=== PATIENT | male | born 1965 | race Hispanic/Latino ===

== ENCOUNTER 2019-09-07 08:57 | Inpatient (IN) | payer BC ==
[2019-09-07] MEDS ORDERED: ACETAMINOPHEN 500 MG TAB PO STA ×2 (09:00→09:44)
--- NOTE | 2019-09-07 09:00 | Emergency Department Report ---
ED Fever HPI - General Stated Complaint: SEPSIS PUI?: No Source: patient Exam Limitations: no limitations - History of Present Illness Initial Comments: Mr. Ricardo is a 53-year-old male with history of hypertension, diverticulitis, who presents with fever and left flank pain for several days. He has gen eralized malaise. He has burning with urination. His son called 911 due to illness. He denies cough or shortness of breath. He denies fever cough or recent travel Timing/Duration: other (Several days) Fever Severity/Quality: greater than 102 F Associated Symptoms: other (Back pain) ED Review of Systems ROS: Stated complaint: SEPSIS Other details as noted in HPI Comment: All other systems reviewed and negative Constitutional: fever, malaise Respiratory: denies: cough, shortness of breath Gastrointestinal: denies: abdominal pain, nausea, vomiting Genitourinary: dysuria, other (Back pain) Musculoskeletal: back pain ED Past Medical Hx - Past Medical History Previous Medical History?: Yes Hx Hypertension: Yes - Surgical History Past Surgical History?: Yes Hx Cholecystectomy: Yes Additional Surgical History: back surgeries x 6 - Social History Smoking Status: Never Smoker Substance Use Type: None ED Physical Exam - General General appearance: alert, other (Appears ill appears uncomfortable) - Head Head exam: Present: atraumatic, normocephalic - Eye Eye exam: Present: normal appearance - ENT ENT exam: Present: mucous membranes moist - Neck Neck exam: Present: normal inspection, full ROM - Respiratory Respiratory exam: Present: normal lung sounds bilaterally. Absent: respiratory distress, wheezes, rales, rhonchi - Cardiovascular Cardiovascular Exam: Present: normal rhythm, tachycardia, normal heart sounds. Absent: systolic murmur, diastolic murmur, rubs, gallop - GI/Abdominal GI/Abdominal exam: Present: soft, tenderness (Left lower quadrant tenderness). Absent: guarding, rebound - Rectal Rectal exam: Present: deferred - Extremities Exam Extremities exam: Present: normal inspection - Neurological Exam Neurological exam: Present: alert, oriented X3 - Psychiatric Psychiatric exam: Present: normal mood, flat affect - Skin Skin exam: Present: warm, dry, intact, normal color. Absent: rash ED Course Vital Signs 09/07/19 09/07/19 09/07/19 08:48 08:56 09:01 Temperature Pulse Rate 131 H 130 H 129 H Respiratory 21 20 Rate Blood Pressure 143/61 Blood Pressure 143/61 [Right] O2 Sat by Pulse 94 94 96 Oximetry 09/07/19 09/07/19 09/07/19 09:06 09:51 10:00 Temperature 103.4 F H Pulse Rate 135 H Respiratory 18 24 Rate Blood Pressure 155/83 139/77 Blood Pressure [Right] O2 Sat by Pulse 97 96 Oximetry 09/07/19 10:31 Temperature Pulse Rate 132 H Respiratory 21 Rate Blood Pressure 139/79 Blood Pressure [Right] O2 Sat by Pulse 92 Oximetry ED Medical Decision Making - Lab Data Result diagrams: 09/07/19 09:10 09/07/19 09:10 Laboratory Results - last 24 hr 09/07/19 09/07/19 09/07/19 09:06 09:10 09:10 WBC 11.0 RBC 4.47 Hgb 12.6 Hct 37.2 MCV 83 L MCH 28 MCHC 34 RDW 16.1 H Plt Count 122 L Seg Neutrophils % Hose Seamer Sodium 133 L Potassium 3.2 L Chloride 93.7 L Carbon Dioxide 25 Anion Gap 18 BUN 14 Creatinine 1.2 Estimated GFR > 60 BUN/Creatinine Ratio 12 Glucose 130 H POC Glucose 133 H Lactic Acid Calcium 7.9 L Total Bilirubin 0.80 AST 17 ALT 13 Alkaline Phosphatase 39 Total Protein 5.9 L Albumin 3.1 L Albumin/Globulin Ratio 1.1 Urine Color Urine Turbidity Urine pH Ur Specific [place] Urine Protein Urine Glucose (UA) Urine Ketones Urine Blood Urine Nitrite Urine Bilirubin Urine Urobilinogen Ur Leukocyte Esterase Urine WBC (Auto) Urine RBC (Auto) U Epithel Cells (Auto) Urine Bacteria (Auto) Urine Mucus 09/07/19 09/07/19 09/07/19 09:10 10:00 10:13 WBC RBC Hgb Hct MCV MCH MCHC RDW Plt Count Seg Neutrophils % Sodium Potassium Chloride Carbon Dioxide Anion Gap BUN Creatinine Estimated GFR BUN/Creatinine Ratio Glucose POC Glucose Lactic Acid 2.00 1.20 Calcium Total Bilirubin AST ALT Alkaline Phosphatase Total Protein Albumin Albumin/Globulin Ratio Urine Color [place] Urine Turbidity Slightly-cloudy Urine pH 6.0 Ur Specific [place] 1.024 Urine Protein 100 mg/dl Urine Glucose (UA) Neg Urine Ketones 80 Urine Blood Lg Urine Nitrite Neg Urine Bilirubin Neg Urine Urobilinogen < 2.0 Ur Leukocyte Esterase Neg Urine WBC (Auto) 6.0 Urine RBC (Auto) 68.0 U Epithel Cells (Auto) 1.0 Urine Bacteria (Auto) 1+ Urine Mucus 1+ - EKG Data EKG shows normal: sinus rhythm, axis, intervals, QRS complexes, ST-T waves Rate: tachycardia - EKG Data Interpretation: normal EKG (With exception of heart rate 130 bpm) - Radiology Data Radiology results: report reviewed CT abdomen pelvis: Localized thickening of the proximal sigmoid colon with mild surrounding edema, CT chest: No acute findings AP portable chest: No acute findings - Medical Decision Making Acute sigmoid diverticulitis, sepsis antibiotics initiated according to sepsis protocol presumed initially a source. After intra-abdominal process confirmed, metronidazole was added to the regimen. Admitted to the hospital service in fair condition Critical care attestation.: If time is entered above; I have spent that time in minutes in the direct care of this critically ill patient, excluding procedure time. ED Disposition Clinical Impression: Acute diverticulitis, Sepsis Disposition: [id number] OP ADMIT IP TO THIS HOSP Is pt being admited?: Yes Does the pt Need Aspirin: No Condition: Stable
[2019-09-07 09:23] LABS: Hematocrit 37.2 % (35.5-45.6); Hemoglobin 12.6 gm/dl (11.8-15.2); Mean Corpuscular HGB Conc 34 % (32-34); Mean Corpuscular Volume 83 fl (84-94); Platelet Count 122 K/mm3 (140-440); Red Blood Count 4.47 M/mm3 (3.65-5.03); Red Cell Distribution Width 16.1 % (13.2-15.2)
[2019-09-07] MEDS ORDERED: DEXTROSE 50% IN WATER (25GM) 50 ML SYRINGE IV ONE (09:46)
--- NOTE | 2019-09-07 09:58 | XRay Report ---
CHEST 1 VIEW INDICATION / CLINICAL INFORMATION: fever. COMPARISON: None available. FINDINGS: SUPPORT DEVICES: None. HEART / MEDIASTINUM: Heart size is normal with left ventricular configuration. LUNGS / PLEURA: No significant pulmonary or pleural abnormality. No pneumothorax. ADDITIONAL FINDINGS: No significant additional findings. IMPRESSION: 1. No acute findings. Signer Name: Dorian Westbrook MD Signed: 09/07/2019 9:54 AM Workstation Name: [id number]
[2019-09-07] MEDS ORDERED: cefTRIAXone/NS 1 GM/50 ML 1 GM/50 ML BAG IV SCH (10:00)
[2019-09-07 10:07] LABS: Alanine Aminotransferase 13 units/L (7-56); Albumin 3.1 g/dL (3.9-5); BUN/Creatinine Ratio 12; Blood Urea Nitrogen 14 mg/dL (9-20); Calcium 7.9 mg/dL (8.4-10.2); Hemolysis Index 0
[2019-09-07] MEDS ORDERED: SODIUM CHLORIDE 0.9% 1000 ML 1,000 ML IV ONE ×3 (10:08→11:14)
[2019-09-07] MEDS ORDERED: SODIUM CHLORIDE 0.9% 1000 ML 1,000 ML ONE (10:10)
--- NOTE | 2019-09-07 10:22 | Cat Scan Report ---
CT chest wo con INDICATION: fever back pain. TECHNIQUE: All CT scans at this location are performed using the following dose modulation technique: Automated exposure control. CONTRAST: None. COMPARISON: None available. FINDINGS: Negative for lung mass, infiltrate or pleural fluid. No mediastinal mass or adenopathy. No acute appearing bony abnormality. IMPRESSION: Unremarkable CT chest without contrast. Signer Name: Freddy Constantino MD Signed: 09/07/2019 10:18 AM Workstation Name: [id number]
[2019-09-07 10:28] LABS: Bacteria,Urine 1+ /HPF (Negative); Bilirubin,Urine NEG (Negative); Blood,Urine LG (Negative); Color,Urine Amber (Yellow); Mucus,Urine 1+ /HPF; Urobilinogen,Urine < 2.0 mg/dL (<2.0)
--- NOTE | 2019-09-07 10:42 | Cat Scan Report ---
CT abdomen pelvis wo con INDICATION / CLINICAL INFORMATION: fever back pain. TECHNIQUE: All CT scans at this location are performed using CT dose reduction for ALARA by means of automated e xposure control. COMPARISON: None available. FINDINGS: Limited lower thoracic images show no acute disease. ABDOMEN: Cholecystectomy. The liver, spleen and pancreas are normal. Bilateral nephrolithiasis without hydronephrosis or ureteral stones. The largest intrarenal calculus is in the lower pole of the right kidney measuring 13 mm. No perinephric fluid collections. Adrenal glands are normal. No mesenteric or retroperitoneal adenopathy. Pelvis: There is a normal retrocecal appendix. Localized thickening of the proximal sigmoid colon with mild surrounding edema. There are no dependent fluid collections are seen in the pelvis. Fluid is seen in the rectosigmoid. Postsurgical changes are seen in the lower lumbar spine. No acute skeletal findings. IMPRESSION: 1. Abnormality of the proximal sigmoid colon could represent localized colitis/diverticulitis. The fi ndings could all be so be produced by carcinoma the colon. Signer Name: Dorian Westbrook MD Signed: 09/07/2019 10:38 AM Workstation Name: [id number]
[2019-09-07] MEDS ORDERED: metroNIDAZOLE/NS 500 MG/100 ML 500 MG/100 ML BAG IV ONE (11:07)
[2019-09-07] MEDS ORDERED: IBUPROFEN 800 MG TAB PO ONE (11:14)
[2019-09-07 11:46] LABS: Total Cells Counted 100
[2019-09-07 11:47] LABS: Anisocytosis RARE; Band Neutrophils # (Manual) 0.4 K/mm3; Basophils % (Manual) 0 % (0.0-1.8); Eosinophils % (Manual) 0 % (0.0-4.3); Platelet Estimate Consistent w Auto
[2019-09-07] MEDS: predniSONE 20 MG TAB PO SCH (12:04)
[2019-09-07] MEDS: PYRIDOSTIGMINE BROMIDE 60 MG TAB PO SCH ×2 (12:29→17:58)
[2019-09-07] MEDS ORDERED: LORazepam 2 MG/ML VIAL ONE (12:47)
--- NOTE | 2019-09-07 14:05 | History and Physical Report ---
History of Present Illness Chief complaint: I am having stomach pain History of present illness: 53 YO Male with HTN, Myasthenia Gravis, Ulcerative Colitis presents to ED for evaluation. Patient states that he has been experiencing abdominal pain over the past 2 weeks with worsening symptoms over the past 4 days. Patient also reports fever to 102 F. Patient's reports that patient did not receive his Solaris infusion due to feeling ill. Patient states his abdominal pain is 7/10, constant, crampy in nature, not worsened with exertion, not relieved with rest. EMS notified and upon arrival the patient was found to be in distress and subsequently transported to [facility] for further care and evaluation. Patient seen and evaluated in the emergency department. Lab and imaging studies reviewed. Patient underwent a CT scan of the abdomen and pelvis which showed evidence of diverticulitis. Patient admitted to surgical floor due to increased risk of decompensation. Patient treated with IV fluid resuscitation therapy, bowel rest, and IV antibiotic therapy. Surgical team consulted in ED. Patient denies chills, chest pain, palpitation, productive cough, recent ill contacts, ingestion of food/water from new or different sources, known exposure to COVID- 19. No prior admission for review. All medication listed at time of admission has been reconciled. Past History Past Medical History: hypertension, other (See HPI) Past Surgical History: cholecystectomy, Other (Back surgery) Social history: , Lives alone Family history: hypertension Medications and Allergies Allergies Allergy/AdvReac Type Severity Reaction Status Date / Time No Known Allergies Allergy Unverified 09/07/19 09:06 Home Medications Medication Instructions Recorded Confirmed Last Taken Type Balsalazide Disodium [Colazal] 2,250 mg PO TID 09/07/19 09/07/19 09/06/19 History Gabapentin 900 mg PO TID 09/07/19 09/07/19 09/06/19 History Metoprolol [Lopressor] 25 mg PO BID 09/07/19 09/07/19 09/06/19 History Olmesartan/Amlodipin/Hcthiazid 2 each PO DAILY 09/07/19 09/07/19 09/06/19 History [Tribenzor 20-5-12.5 mg Tablet] Omeprazole 40 mg PO DAILY 09/07/19 09/07/19 09/06/19 History Pyridostigmine [Mestinon] 120 mg PO Q6HR 09/07/19 09/07/19 09/06/19 History Tamsulosin [Flomax] 0.4 mg PO QDAY 09/07/19 09/07/19 09/06/19 History carBAMazepine [Carbamazepine] 200 mg PO BID 09/07/19 09/07/19 09/06/19 History predniSONE [Deltasone] 60 mg PO QDAY 09/07/19 09/07/19 09/06/19 History Active Meds: Active Medications Ceftriaxone Sodium (Rocephin/Ns 1 Gm/50 Ml) 1 gm in 50 mls @ 100 mls/hr IV Q24HR [facility]; Protocol Stop: 09/09/19 10:29 Last Infusion: 09/07/19 10:20 Dose: Infused Documented by: Prednisone (Deltasone) 60 mg PO DAILY [facility] Last Admin: 09/07/19 12:04 Dose: 60 mg Documented by: Pyridostigmine [place] (Mestinon) 120 mg PO Q6HR [facility] Last Admin: 09/07/19 12:29 Dose: 120 mg Documented by: Review of Systems Constitutional: fever, malaise, no weight loss, no weight gain, no chills, no sweats Ears, nose, mouth and throat: no ear pain, no ear discharge, no tinnitis, no decreased hearing, no nose pain Cardiovascular: no chest pain, no orthopnea, no rapid/irregular heart beat, no syncope, no lightheadedness Respiratory: no cough, no cough with sputum, no excessive sputum, no hemoptysis Gastrointestinal: abdominal pain, no nausea, no vomiting, no diarrhea, no hematemesis Genitourinary Male: no hematuria, no flank pain, no discharge, no urinary hesitancy, no nocturia Rectal: no pain, no incontinence, no bleeding Musculoskeletal: no neck stiffness, no neck pain, no shooting leg pain, no leg numbness/tingling Integumentary: no rash, no pruritis, no sores, no wounds, no jaundice, no boils Neurological: no transient paralysis, no paralysis, no numbness, no tingling, no seizures, no syncope Psychiatric: no anxiety, no memory loss, no change in sleep habits, no insomnia, no hypersomnia, no change in appetite, no suicidal ideation, no disorientation Endocrine: no cold intolerance, no heat intolerance, no polyphagia, no polydipsia, no polyuria Hematologic/Lymphatic: no easy bruising, no easy bleeding, no lymphedema Allergic/Immunologic: no urticaria, no allergic rhinitis, no wheezing, no anaphylaxis Exam - Constitutional Vitals: Temp Pulse Resp BP Pulse Ox 100.3 F H 95 H 19 128/63 93 09/07/19 11:06 09/07/19 12:30 09/07/19 12:30 09/07/19 12:30 09/07/19 12:30 General appearance: Present: mild distress, obese - EENT Eyes: Present: PERRL ENT: hearing intact, clear oral mucosa - Neck Neck: Present: supple, normal ROM - Respiratory Respiratory effort: normal Respiratory: bilateral: CTA - Cardiovascular Heart Sounds: Present: S1 & S2. Absent: rub, click - Extremities Extremities: pulses symmetrical, No edema Peripheral Pulses: within normal limits - Abdominal General gastrointestinal: Present: soft, non-tender, non-distended, normal bowel sounds Male genitourinary: Present: normal - Integumentary Integumentary: Present: clear, warm, dry - Musculoskeletal Musculoskeletal: gait normal, strength equal bilaterally - Psychiatric Psychiatric: appropriate mood/affect, intact judgment & insight - Neurologic Neurologic: CNII-XII intact, moves all extremities Results - Labs CBC & Chem 7: 09/07/19 09:10 09/07/19 09:10 Labs: Abnormal lab results 09/07/19 09/07/19 09/07/19 Range/Units 09:06 09:10 09:10 MCV 83 L (84-94) fl RDW 16.1 H (13.2-15.2) % Plt Count 122 L (140-440) K/mm3 Seg Neuts % (Manual) 92.0 H (40.0-70.0) % Lymphocytes % (Manual) 2.0 L (13.4-35.0) % Seg Neutrophils # Man 10.1 H (1.8-7.7) K/mm3 Lymphocytes # (Manual) 0.2 L (1.2-5.4) K/mm3 Sodium 133 L (137-145) mmol/L Potassium 3.2 L (3.6-5.0) mmol/L Chloride 93.7 L (98-107) mmol/L Glucose 130 H (75-100) mg/dL POC Glucose 133 H (70-105) Calcium 7.9 L (8.4-10.2) mg/dL Total Protein 5.9 L (6.3-8.2) g/dL Albumin 3.1 L (3.9-5) g/dL Assessment and Plan - Patient Problems (1) Acute diverticulitis Current Visit: Yes Status: Acute Plan to address problem: CT scan abdomen and pelvis, CBC, CMP, IV antibiotic therapy, IV fluid resuscitation therapy, bowel rest, supportive care, surgery team consulted in ED. (2) Ulcerative colitis Current Visit: Yes Status: Acute Qualifiers: Digestive disease complication type: with intestinal obstruction Plan to address problem: Supportive care, outpatient GI follow-up, continue prehospital therapy. (3) Hyponatremia syndrome Current Visit: Yes Status: Acute Plan to address problem: IV fluid resuscitation therapy, BMP, repeat BMP in a.m. (4) Hypokalemia Current Visit: Yes Status: Acute Plan to address problem: Repleted, repeat serum potassium in a.m. (5) Myasthenia gravis Current Visit: Yes Status: Acute Plan to address problem: Supportive care, continue prehospital medication, stable no exacerbation at this time. (6) DVT prophylaxis Current Visit: Yes Status: Acute Plan to address problem: SCD to bilateral lower extremities while in bed, patient is ambulatory
[2019-09-07] MEDS ORDERED: ONDANSETRON 4 MG/2 ML INJ IV PRN (14:08)
--- NOTE | 2019-09-07 17:34 | Consultation ---
History of Present Illness Consult date: 09/07/19 Reason for consult: abdominal pain Chief complaint: Abdominal pain - History of present illness History of present illness: 53-year-old male with a past medical history of ulcerative colitis, myasthenia g ravis, diverticulosis who presents to the emergency room with complaints of left lower quadrant abdominal pain. The patient states that the pain is dull and has been present for 4 days. He has just been feeling unwell and very fatigued. He has never had pain like this in the past. The pain does not radiate. There were no inciting factors and no sick contacts. He denies fevers, chills, chest pain, shortness of breath, nausea, vomiting. He does have diarrhea but this is normal for him due to his ulcerative colitis. No hematochezia or melena. 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 Patient states that he takes medication for ulcerative colitis daily. He is also on infusions for his myasthenia gravis. His last colonoscopy was 2 years ago which was unremarkable. He states he was supposed to have a colonoscopy in the last several months however it was canceled due to the coronavirus pandemic. Past History Past Medical History: hypertension, other (Myasthenia gravis, ulcerative colitis) Past Surgical History: cholecystectomy, Other (Multiple neck and back surgeries, carpal tunnel surgery) Social history: no significant social history Family history: no significant family history Medications and Allergies Allergies Allergy/AdvReac Type Severity Reaction Status Date / Time No Known Allergies Allergy Unverified 09/07/19 09:06 Home Medications Medication Instructions Recorded Confirmed Last Taken Type Balsalazide Disodium [Colazal] 2,250 mg PO TID 09/07/19 09/07/19 09/06/19 History Gabapentin 900 mg PO TID 09/07/19 09/07/19 09/06/19 History Metoprolol [Lopressor] 25 mg PO BID 09/07/19 09/07/19 09/06/19 History Olmesartan/Amlodipin/Hcthiazid 2 each PO DAILY 09/07/19 09/07/19 09/06/19 History [Tribenzor 20-5-12.5 mg Tablet] Omeprazole 40 mg PO DAILY 09/07/19 09/07/19 09/06/19 History Pyridostigmine [Mestinon] 120 mg PO Q6HR 09/07/19 09/07/19 09/06/19 History Tamsulosin [Flomax] 0.4 mg PO QDAY 09/07/19 09/07/19 09/06/19 History carBAMazepine [Carbamazepine] 200 mg PO BID 09/07/19 09/07/19 09/06/19 History predniSONE [Deltasone] 60 mg PO QDAY 09/07/19 09/07/19 09/06/19 History Active Meds: Active Medications Acetaminophen (Tylenol) 650 mg PO Q4H PRN PRN Reason: Pain MILD(1-3)/Fever >100.5/BALDERAS Amlodipine Besylate (Amlodipine) 5 mg PO QDAY [facility] Carbamazepine (Tegretol) 200 mg PO BID [facility] Gabapentin (Gabapentin) 900 mg PO TID [facility] Hydrochlorothiazide (Hctz) 12.5 mg PO QDAY [facility] Ceftriaxone Sodium (Rocephin/Ns 1 Gm/50 Ml) 1 gm in 50 mls @ 100 mls/hr IV Q24HR [facility]; Protocol Stop: 09/09/19 10:29 Last Infusion: 09/07/19 10:20 Dose: Infused Documented by: Metronidazole (Flagyl 500 Mg/100 Ml) 500 mg in 100 mls @ 100 mls/hr IV Q8HR [facility]; Protocol Piperacillin Sod/Tazobactam Sod (Zosyn/Ns 4.5gm/100ml) 4.5 gm in 100 mls @ 200 mls/hr IV Q8HR [facility]; Protocol Sodium Chloride (Nacl 0.9% 1000 Ml) 1,000 mls @ 125 mls/hr IV DIRECT [facility] Losartan Potassium (Cozaar) 50 mg PO QDAY [facility] Metoprolol Tartrate (Metoprolol) 25 mg PO BID [facility] Miscellaneous Medication (Balsalazide Disodium [Colazal]) 2,250 mg PO TID [facility] Morphine Sulfate (Morphine) 2 mg IV Q4H PRN PRN Reason: Pain, Moderate (4-6) Ondansetron HCl (Zofran) 4 mg IV Q8H PRN PRN Reason: Nausea And Vomiting Pantoprazole Sodium (Protonix) 40 mg PO DAILY [facility] Prednisone (Deltasone) 60 mg PO DAILY [facility] Last Admin: 09/07/19 12:04 Dose: 60 mg Documented by: Prednisone (Deltasone) 60 mg PO QDAY [facility] Pyridostigmine [place] (Mestinon) 120 mg PO Q6HR [facility] Last Admin: 09/07/19 12:29 Dose: 120 mg Documented by: Pyridostigmine [place] (Mestinon) 120 mg PO Q6HR [facility] Sodium Chloride (Sodium Chloride Flush Syringe 10 Ml) 10 ml IV BID [facility] Sodium Chloride (Sodium Chloride Flush Syringe 10 Ml) 10 ml IV PRN PRN PRN Reason: LINE FLUSH Tamsulosin HCl (Flomax) 0.4 mg PO QDAY [facility] Review of Systems All systems: negative (10 point review systems performed and negative except for that listed in HPI) Exam Vital Signs Pulse Pulse Ox 131 H 94 09/07/19 08:48 09/07/19 08:48 Narrative exam: Gen.: Awake, alert, oriented 3. No apparent distress ENT: Trachea midline. No lymphadenopathy. No scleral icterus or conjunctival pallor CV: S1, S2 present Respiratory: No audible wheezes Abdomen: Soft, protuberant, nondistended, localized tenderness to palpation in the left lower quadrant. No rebound, rigidity, guarding Extremities: No clubbing, cyanosis, edema Results - Labs 09/07/19 09:10 09/07/19 09:10 Abnormal lab results 09/07/19 09/07/19 09/07/19 Range/Units 09:06 09:10 09:10 MCV 83 L (84-94) fl RDW 16.1 H (13.2-15.2) % Plt Count 122 L (140-440) K/mm3 Seg Neuts % (Manual) 92.0 H (40.0-70.0) % Lymphocytes % (Manual) 2.0 L (13.4-35.0) % Seg Neutrophils # Man 10.1 H (1.8-7.7) K/mm3 Lymphocytes # (Manual) 0.2 L (1.2-5.4) K/mm3 Sodium 133 L (137-145) mmol/L Potassium 3.2 L (3.6-5.0) mmol/L Chloride 93.7 L (98-107) mmol/L Glucose 130 H (75-100) mg/dL POC Glucose 133 H (70-105) Calcium 7.9 L (8.4-10.2) mg/dL Total Protein 5.9 L (6.3-8.2) g/dL Albumin 3.1 L (3.9-5) g/dL Diabetes panel 09/07/19 Range/Units 09:10 Sodium 133 L (137-145) mmol/L Potassium 3.2 L (3.6-5.0) mmol/L Chloride 93.7 L (98-107) mmol/L Carbon Dioxide 25 (22-30) mmol/L BUN 14 (9-20) mg/dL Creatinine 1.2 (0.8-1.5) mg/dL Glucose 130 H (75-100) mg/dL Calcium 7.9 L (8.4-10.2) mg/dL AST 17 (5-40) units/L ALT 13 (7-56) units/L Alkaline Phosphatase 39 (35-129) units/L Total Protein 5.9 L (6.3-8.2) g/dL Albumin 3.1 L (3.9-5) g/dL Calcium panel 09/07/19 Range/Units 09:10 Calcium 7.9 L (8.4-10.2) mg/dL Albumin 3.1 L (3.9-5) g/dL Pituitary panel 09/07/19 Range/Units 09:10 Sodium 133 L (137-145) mmol/L Potassium 3.2 L (3.6-5.0) mmol/L Chloride 93.7 L (98-107) mmol/L Carbon Dioxide 25 (22-30) mmol/L BUN 14 (9-20) mg/dL Creatinine 1.2 (0.8-1.5) mg/dL Glucose 130 H (75-100) mg/dL Calcium 7.9 L (8.4-10.2) mg/dL Adrenal panel 09/07/19 Range/Units 09:10 Sodium 133 L (137-145) mmol/L Potassium 3.2 L (3.6-5.0) mmol/L Chloride 93.7 L (98-107) mmol/L Carbon Dioxide 25 (22-30) mmol/L BUN 14 (9-20) mg/dL Creatinine 1.2 (0.8-1.5) mg/dL Glucose 130 H (75-100) mg/dL Calcium 7.9 L (8.4-10.2) mg/dL Total Bilirubin 0.80 (0.1-1.2) mg/dL AST 17 (5-40) units/L ALT 13 (7-56) units/L Alkaline Phosphatase 39 (35-129) units/L Total Protein 5.9 L (6.3-8.2) g/dL Albumin 3.1 L (3.9-5) g/dL - Imaging CT scan - abdomen: report reviewed, image reviewed CT scan - pelvis: report reviewed, image reviewed Assessment and Plan 53-year-old male with 1. acute uncomplicated sigmoid diverticulitis 2. History of ulcerative colitis Plan: 1. NPO 2. IVF 3. IV abx - already initiated in ER 4. prn pain control 5. DVT ppx 6. Will follow Thank you, please call with questions.
[2019-09-07] MEDS ORDERED: PYRIDOSTIGMINE BROMIDE 60 MG TAB PO SCH (18:00)
[2019-09-07] MEDS ORDERED: BALSALAZIDE DISODIUM 2250 MG PO SCH (20:00)
[2019-09-07] MEDS: GABAPENTIN 300 MG CAP PO SCH (21:22)
[2019-09-07] MEDS: SODIUM CHLORIDE 0.9% 1000 ML 1,000 ML IV SCH (22:08)
[2019-09-07] MEDS: metroNIDAZOLE/NS 500 MG/100 ML 500 MG/100 ML BAG IV SCH (22:44)
[2019-09-07] MEDS: METOPROLOL TARTRATE 25 MG TAB PO SCH (23:15)
[2019-09-07] MEDS: carBAMazepine 200 MG TAB PO SCH (23:15)
[2019-09-07] MEDS: PIPERACIL/TAZOBACTA 4.5/NS 100 4.5 GM/100 ML VIAL IV SCH (23:16)
[2019-09-08] MEDS: MORPHINE 2 MG/1 ML INJ IV PRN ×3 (01:12→17:28)
[2019-09-08] MEDS: PYRIDOSTIGMINE BROMIDE 60 MG TAB PO SCH ×4 (01:13→17:16)
[2019-09-08] MEDS: ACETAMINOPHEN 325 MG TAB PO PRN ×2 (04:18→11:40)
[2019-09-08 05:38] LABS: Basophils % (Auto) 0.2 % (0.0-1.8); Hematocrit 34.6 % (35.5-45.6); Hemoglobin 11.4 gm/dl (11.8-15.2); Lymphocytes # (Auto) 0.4 K/mm3 (1.2-5.4); Lymphocytes % (Auto) 3.2 % (13.4-35.0); Mean Corpuscular HGB Conc 33 % (32-34); Mean Corpuscular Volume 83 fl (84-94); Monocytes # (Auto) 0.9 K/mm3 (0.0-0.8); Monocytes % (Auto) 6.6 % (0.0-7.3); Platelet Count 136 K/mm3 (140-440); Red Blood Count 4.16 M/mm3 (3.65-5.03); Red Cell Distribution Width 16.5 % (13.2-15.2)
[2019-09-08 05:53] LABS: Alanine Aminotransferase 12 units/L (7-56); Albumin 2.7 g/dL (3.9-5); BUN/Creatinine Ratio 19; Blood Urea Nitrogen 21 mg/dL (9-20); Calcium 7.7 mg/dL (8.4-10.2); Hemolysis Index 19
[2019-09-08] MEDS: metroNIDAZOLE/NS 500 MG/100 ML 500 MG/100 ML BAG IV SCH (05:54)
[2019-09-08] MEDS: PIPERACIL/TAZOBACTA 4.5/NS 100 4.5 GM/100 ML VIAL IV SCH ×4 (07:20→22:50)
[2019-09-08] MEDS ORDERED: MAGNESIUM SULFATE 1 GM in SODIUM CHLORIDE 0.9% 50 ML IV ONE (08:30)
[2019-09-08] MEDS ORDERED: AMLODIPIN PO SCH (10:00)
[2019-09-08] MEDS ORDERED: NON-FORMULARY EACH (Omeprazole [Omeprazole] 40 MG) PO SCH (10:00)
[2019-09-08] MEDS ORDERED: OLMESARTAN PO SCH (10:00)
[2019-09-08] MEDS ORDERED: predniSONE 20 MG TAB PO SCH (10:00)
[2019-09-08] MEDS ORDERED: HCTHIAZID PO SCH (10:00)
[2019-09-08] MEDS ORDERED: [UNRECOGNIZED DRUG - OTHER] PO SCH (10:00)
[2019-09-08] MEDS: amLODIPine 5 MG TAB PO SCH (10:12)
[2019-09-08] MEDS: TAMSULOSIN 0.4 MG CAP PO SCH (10:12)
[2019-09-08] MEDS: PANTOPRAZOLE 40 MG TAB PO SCH (10:13)
[2019-09-08] MEDS: METOPROLOL TARTRATE 25 MG TAB PO SCH ×2 (10:13→22:21)
[2019-09-08] MEDS: LOSARTAN 50 MG TAB PO SCH (10:15)
[2019-09-08] MEDS: predniSONE 20 MG TAB PO SCH (10:16)
[2019-09-08] MEDS: GABAPENTIN 300 MG CAP PO SCH ×3 (10:18→20:18)
[2019-09-08] MEDS: POTASSIUM CHLORIDE 10 MEQ 10 MEQ/100 ML BAG IV SCH ×4 (10:25→14:17)
[2019-09-08] MEDS: SODIUM CHLORIDE 0.9% 1000 ML 1,000 ML IV SCH ×2 (11:19→18:05)
[2019-09-08] MEDS: hydroCHLOROthiazide 12.5 MG CAP PO SCH (11:34)
[2019-09-08] MEDS: carBAMazepine 200 MG TAB PO SCH ×2 (12:02→22:21)
--- NOTE | 2019-09-08 12:51 | Progress Note ---
Assessment and Plan 53-year-old male with 1. acute uncomplicated sigmoid diverticulitis 2. History of ulcerative colitis 3. sepsis 2/2 #1 Plan: 1. NPO - may have ice chip and sips and water 2. IVF 3. IV abx 4. ID consulted 5. prn pain control 6. DVT ppx 7. bl cx - gram neg rods 8. If patient continues to have fever and abdominal pain does not start to improve in the next 24 hours on IV abx, rec repeat CT A/P with contrast for further evaluation in am. Plan discussed with patient. At patient's request I called his Mago at [phone] to update her on the plan but no answer. Thank you, please call with questions. Subjective Date of service: 09/08/19 Narrative: Patient seen and examined. He states he feels about the same as yesterday. No change in left lower quadrant abdominal pain. No nausea, vomiting. He is asking for ice chips. T-max 100.7. He had multiple bowel movements. Objective Vital Signs - 12hr 09/08/19 09/08/19 09/08/19 04:30 08:00 09:43 Temperature 100.7 F H 98.8 F Pulse Rate 95 H 80 Respiratory 18 19 Rate Blood Pressure Blood Pressure 110/66 112/75 [Left] O2 Sat by Pulse 94 97 98 Oximetry 09/08/19 09/08/19 09/08/19 10:12 10:13 10:15 Temperature Pulse Rate 80 80 80 Respiratory Rate Blood Pressure 112/75 112/75 112/75 Blood Pressure [Left] O2 Sat by Pulse Oximetry 09/08/19 11:00 Temperature 98.4 F Pulse Rate 86 Respiratory 19 Rate Blood Pressure Blood Pressure 125/74 [Left] O2 Sat by Pulse 96 Oximetry - General physical appearance Narrative Exam: General: Awake, alert, oriented x3. CV: S1, S2 present Respiratory: No audible wheezes Abdomen: Soft, nondistended, point tenderness in left lower quadrant with rebo und. No rigidity. Extremities: No clubbing, cyanosis, edema - Labs 09/08/19 05:12 09/08/19 05:12 Diabetes panel 09/08/19 Range/Units 05:12 Sodium 142 D (137-145) mmol/L Potassium 3.5 L (3.6-5.0) mmol/L Chloride 103.4 (98-107) mmol/L Carbon Dioxide 21 L (22-30) mmol/L BUN 21 H (9-20) mg/dL Creatinine 1.1 (0.8-1.5) mg/dL Glucose 105 H (75-100) mg/dL Calcium 7.7 L (8.4-10.2) mg/dL AST 19 (5-40) units/L ALT 12 (7-56) units/L Alkaline Phosphatase 37 (35-129) units/L Total Protein 5.4 L (6.3-8.2) g/dL Albumin 2.7 L (3.9-5) g/dL Calcium panel 09/08/19 Range/Units 05:12 Calcium 7.7 L (8.4-10.2) mg/dL Albumin 2.7 L (3.9-5) g/dL Pituitary panel 09/08/19 Range/Units 05:12 Sodium 142 D (137-145) mmol/L Potassium 3.5 L (3.6-5.0) mmol/L Chloride 103.4 (98-107) mmol/L Carbon Dioxide 21 L (22-30) mmol/L BUN 21 H (9-20) mg/dL Creatinine 1.1 (0.8-1.5) mg/dL Glucose 105 H (75-100) mg/dL Calcium 7.7 L (8.4-10.2) mg/dL Adrenal panel 09/08/19 Range/Units 05:12 Sodium 142 D (137-145) mmol/L Potassium 3.5 L (3.6-5.0) mmol/L Chloride 103.4 (98-107) mmol/L Carbon Dioxide 21 L (22-30) mmol/L BUN 21 H (9-20) mg/dL Creatinine 1.1 (0.8-1.5) mg/dL Glucose 105 H (75-100) mg/dL Calcium 7.7 L (8.4-10.2) mg/dL Total Bilirubin 0.30 (0.1-1.2) mg/dL AST 19 (5-40) units/L ALT 12 (7-56) units/L Alkaline Phosphatase 37 (35-129) units/L Total Protein 5.4 L (6.3-8.2) g/dL Albumin 2.7 L (3.9-5) g/dL
--- NOTE | 2019-09-08 14:09 | Consultation ---
History of Present Illness - Reason for Consult Consult date: 09/08/19 sepsis Requesting physician: ANGELA RODRIGUEZ - History of Present Illness 53 years old male with history of ulcerative colitis, myasthenia gravis, admitted on 09/07/2019 due to a week history of left lower quadrant pain, associated with generalized malaise, nausea and altered mental status. Per patient, his son brought him to the ED because he was confused. He sees Dr. Kirkpatrick for ulcerative colitis and was supposed to have a repeat colonoscopy however he was canceled due to the COVID-19 pandemic. He reports that a year ago he had similar symptoms so he was given ciprofloxacin and Flagyl which imp roved. Denies any diarrhea or cough. On arrival, temperature 103.4, HR 131. Initial WBC 11. Platelets 122. Creatinine 1.2. Lactate 2. Urinalysis negative. Blood cultures growing gram-negative bacilli. CT of the abdomen without contrast shows thickening of the sigmoid colon with peripheral edema. Review of Systems: positive in bold print General: fever, chills, malaise Cutaneous: rash, pruritus Head: headaches or injury Eyes: changes in vision, eye pain, double vision Ears: ear pain, ear discharge, ringing or hearing loss Nose: nose bleeding, stuffiness Mouth & throat: bleeding gums, horseness, no dental problems, or swollen glands Neck: no pain, node enlargement/lumps, tyroid enlargement or tenderness Respiratory: SOB, cough, MERCADO, wheezing, sputum, hemoptysis, pleuritic chest pain Cardiovascular: chest pain, leg edema, cyanosis, MERCADO, orthopnea Musculoskeletal: edema, deformities, pain Gastrointestinal: Abdominal pain, nausea, vomiting, hematemesis, diarrhea, constipation, melena, bright red blood in stools, fecal incontinence, jaundice Genitourinary/Reproductive: frequent urination, dysuria, hematuria, incontinence Neurogical: Altered mental status seizures, headaches, weakness, paresthesias, loss of speech or vision; memory loss, vertigo, tremors, numbness Psychiatric: stable mood; excessive anxiety, sadness or moodiness Past History Past Medical History: hypertension, other (See HPI) Past Surgical History: cholecystectomy, Other (Back surgery) Social history: , Lives alone Family history: hypertension Medications and Allergies Allergies Allergy/AdvReac Type Severity Reaction Status Date / Time No Known Allergies Allergy Unverified 09/07/19 09:06 Home Medications Medication Instructions Recorded Confirmed Last Taken Type Balsalazide Disodium [Colazal] 2,250 mg PO TID 09/07/19 09/07/19 09/06/19 History Gabapentin 900 mg PO TID 09/07/19 09/07/19 09/06/19 History Metoprolol [Lopressor] 25 mg PO BID 09/07/19 09/07/19 09/06/19 History Olmesartan/Amlodipin/Hcthiazid 2 each PO DAILY 09/07/19 09/07/19 09/06/19 History [Tribenzor 20-5-12.5 mg Tablet] Omeprazole 40 mg PO DAILY 09/07/19 09/07/19 09/06/19 History Pyridostigmine [Mestinon] 120 mg PO Q6HR 09/07/19 09/07/19 09/06/19 History Tamsulosin [Flomax] 0.4 mg PO QDAY 09/07/19 09/07/19 09/06/19 History carBAMazepine [Carbamazepine] 200 mg PO BID 09/07/19 09/07/19 09/06/19 History predniSONE [Deltasone] 60 mg PO QDAY 09/07/19 09/07/19 09/06/19 History Active Meds: Active Medications Acetaminophen (Tylenol) 650 mg PO Q4H PRN PRN Reason: Pain MILD(1-3)/Fever >100.5/BALDERAS Last Admin: 09/08/19 11:40 Dose: 650 mg Documented by: Amlodipine Besylate (Amlodipine) 5 mg PO QDAY [facility] Last Admin: 09/08/19 10:12 Dose: 5 mg Documented by: Carbamazepine (Tegretol) 200 mg PO BID [facility] Last Admin: 09/08/19 12:02 Dose: 200 mg Documented by: Gabapentin (Gabapentin) 900 mg PO TID [facility] Last Admin: 09/08/19 10:18 Dose: 900 mg Documented by: Hydrochlorothiazide (Hctz) 12.5 mg PO QDAY [facility] Last Admin: 09/08/19 11:34 Dose: Not Given Documented by: Hydromorphone HCl (Dilaudid) 0.5 mg IV Q3H PRN PRN Reason: Pain , Severe (7-10) Metronidazole (Flagyl 500 Mg/100 Ml) 500 mg in 100 mls @ 100 mls/hr IV Q8HR [facility]; Protocol Last Admin: 09/08/19 05:54 Dose: 100 mls/hr Documented by: Piperacillin Sod/Tazobactam Sod (Zosyn/Ns 4.5gm/100ml) 4.5 gm in 100 mls @ 200 mls/hr IV Q8HR [facility]; Protocol Last Admin: 09/08/19 07:20 Dose: 200 mls/hr Documented by: Sodium Chloride (Nacl 0.9% 1000 Ml) 1,000 mls @ 125 mls/hr IV DIRECT [facility] Last Admin: 09/08/19 11:19 Dose: 125 mls/hr Documented by: Losartan Potassium (Cozaar) 50 mg PO QDAY [facility] Last Admin: 09/08/19 10:15 Dose: 50 mg Documented by: Metoprolol Tartrate (Metoprolol) 25 mg PO BID [facility] Last Admin: 09/08/19 10:13 Dose: 25 mg Documented by: Miscellaneous Medication (Balsalazide Disodium [Colazal]) 2,250 mg PO TID [facility] Morphine Sulfate (Morphine) 2 mg IV Q3H PRN PRN Reason: Pain, Moderate (4-6) Ondansetron HCl (Zofran) 4 mg IV Q8H PRN PRN Reason: Nausea And Vomiting Pantoprazole Sodium (Protonix) 40 mg PO DAILY [facility] Last Admin: 09/08/19 10:13 Dose: 40 mg Documented by: Prednisone (Deltasone) 60 mg PO DAILY [facility] Last Admin: 09/08/19 10:16 Dose: 60 mg Documented by: Pyridostigmine [place] (Mestinon) 120 mg PO Q6HR [facility] Last Admin: 09/08/19 05:53 Dose: Not Given Documented by: Sodium Chloride (Sodium Chloride Flush Syringe 10 Ml) 10 ml IV BID [facility] Last Admin: 09/08/19 11:35 Dose: Not Given Documented by: Sodium Chloride (Sodium Chloride Flush Syringe 10 Ml) 10 ml IV PRN PRN PRN Reason: LINE FLUSH Tamsulosin HCl (Flomax) 0.4 mg PO QDAY [facility] Last Admin: 09/08/19 10:12 Dose: 0.4 mg Documented by: Physical Examination - Physical Exam Narrative exam: General appearance: Alert in NAD Eyes: anicteric sclerae, moist conjunctivae; no lid-lag; PERRLA HENT: Atraumatic; oropharynx clear with moist mucous membranes and no oral thrush; normal hard and soft palate. Lungs: CTA, with normal respiratory effort and no intercostal retractions CV: RRR no murmur Abdomen: Soft, tenderness in the left lower quadrant with guarding Extremities: no edema, no cyanosis Skin: No rash. Psych: Appropriate affect, alert and oriented to person, place and time. Neuro: alert and oriented x 3. Moving all extermities - Constitutional Vitals: Vital Signs Temp Pulse Resp BP Pulse Ox 98.4 F 86 19 125/74 96 09/08/19 11:00 09/08/19 11:00 09/08/19 11:00 09/08/19 11:00 09/08/19 11:00 Temperature -Last 24 Hours Temperature 98.4 F Temperature 98.8 F Temperature 100.7 F Temperature 97.6 F Temperature 97.2 F Temperature 98.9 F Results - Labs CBC & Chem 7: 09/08/19 05:12 09/08/19 05:12 Labs: Abnormal lab results 09/08/19 09/08/19 Range/Units 05:12 05:12 WBC 13.6 H (4.5-11.0) K/mm3 Hgb 11.4 L (11.8-15.2) gm/dl Hct 34.6 L (35.5-45.6) % MCV 83 L (84-94) fl MCH 27 L (28-32) pg RDW 16.5 H (13.2-15.2) % Plt Count 136 L (140-440) K/mm3 Lymph % (Auto) 3.2 L (13.4-35.0) % Lymph # 0.4 L (1.2-5.4) K/mm3 [place] # 0.9 H (0.0-0.8) K/mm3 Seg Neutrophils % 90.0 H (40.0-70.0) % Seg Neutrophils # 12.3 H (1.8-7.7) K/mm3 Potassium 3.5 L (3.6-5.0) mmol/L Carbon Dioxide 21 L (22-30) mmol/L BUN 21 H (9-20) mg/dL Glucose 105 H (75-100) mg/dL Calcium 7.7 L (8.4-10.2) mg/dL Total Protein 5.4 L (6.3-8.2) g/dL Albumin 2.7 L (3.9-5) g/dL Assessment and Plan Cultures: Blood cultures 09/07/2019 gram-negative bacilli Assessment: 53 years old male with history of ulcerative colitis, myasthenia gravis, admitted on 09/07/2019 due to a week history of left lower quadrant pain, associated with generalized malaise, nausea and altered mental status: #Severe sepsis: present on admission with high fever, tachycardia, altered mental status, thrombocytopenia; source sigmoid colitis (ulcerative colitis flare) versus diverticulitis +/-gram-negative bacilli bacteremia. Urinalysis negative. #Gram-negative bacilli bacteremia: Likely from sigmoid infection. Noncontrasted CT shows no collection. #Sigmoid colitis: Possible ulcerative colitis flare versus diverticulitis, noncontrasted CT shows no collection. Should rule out abscess. #Thrombocytopenia: Likely due to sepsis, monitor platelets. #Altered mental status: Improving Recommendations: Follow-up blood cultures ID and ARRON is Stop metronidazole Continue Zosyn IV for now Start fluconazole until final cultures available Repeat CT abdomen and pelvis with contrast CRP Dr. Mayes is covering the weekend Will follow. Cha Spear MD Infectious Diseases Form Grader Operator [facility] M [phone] O [phone]
--- NOTE | 2019-09-08 14:50 | Progress Note ---
Assessment and Plan Assessment and plan: 53 YO Male with HTN, Myasthenia Gravis, Ulcerative Colitis presents to ED for evaluation. Patient states that he has been experiencing abdominal pain over the past 2 weeks with worsening symptoms over the past 4 days. Patient also reports fever to 102 F. Patient's reports that patient did not receive his Solaris infusion due to feeling ill. Patient states his abdominal pain is 7/10, constant, crampy in nature, not worsened with exertion, not relieved with rest. EMS notified and upon arrival the patient was found to be in distress and subsequently transported to [facility] for further care and evaluation. Patient seen and evaluated in the emergency department. Lab and imaging studies reviewed. Patient underwent a CT scan of the abdomen and pelvis which showed evidence of diverticulitis. Patient admitted to surgical floor due to increased risk of decompensation. Patient treated with IV fluid resuscitation therapy, bowel rest, and IV antibiotic therapy. Surgical team consulted in ED. Patient denies chills, chest pain, palpitation, productive cough, recent ill contacts, ingestion of food/water from new or different sources, known exposure to COVID- 19. No prior admission for review. All medication listed at time of admission has been reconciled. CT A/P IMPRESSION: 1. Abnormality of the proximal sigmoid colon could represent localized colitis/diverticulitis. The findings could all be so be produced by carcinoma the colon. CT Chest: IMPRESSION: Unremarkable CT chest without contrast. CXR: IMPRESSION: 1. No acute findings. Severe Sepsis Gram Negative Bactermia Acute diverticulitis Ulcerative colitis Hyponatremia syndrome Acute Metabolic Encephalopathy Hypokalemia Myasthenia Gravis Thrombocytopnia Plan Continue supportive care Pain control Replace Electrolytes ID consulted and I spoke to them Continue ABX PER ID. Follow Cultures Continue fluids Ok with sterods Will also give some magnesium DVT/GI PROPHY Plan of care discussed with team History Interval history: Patient seen and examined this morning while he is not in acute shortness of breath he does appear uncomfortable likely secondary to abdominal pain. Rating pain 5/10 in intensity. No other adverse event reported by nursing staff. Hospitalist Physical - Physical exam Narrative exam: VITAL SIGNS: Reviewed. GENERAL: The patient appears normally developed, Vital signs as documented. HEAD: No signs of head trauma. EYES: Pupils are equal. Extraocular motions intact. EARS: Hearing grossly intact. MOUTH: Oropharynx is normal. NECK: No adenopathy, no JVD. CHEST: Chest with clear breath sounds bilaterally. No wheezes, rales, or rhonchi. CARDIAC: Regular rate and rhythm. S1 and S2, without murmurs, gallops, or rubs. VASCULAR: No Edema. Peripheral pulses normal and equal in all extremities. ABDOMEN: Soft, distended, tender left lower quadrant. No rebound or guarding, and no masses palpated. Bowel Sounds normal. MUSCULOSKELETAL: Good range of motion of all major joints. Extremities without clubbing, cyanosis or edema. NEUROLOGIC EXAM: Alert and oriented x 3 No focal sensory or strength de ficits. Speech normal. Follows commands. PSYCHIATRIC: Mood normal. SKIN: detail exam as documented in skin assessment - Constitutional Vitals: Temp Pulse Resp BP Pulse Ox 98.4 F 86 19 125/74 96 09/08/19 11:00 09/08/19 11:00 09/08/19 11:00 09/08/19 11:00 09/08/19 11:00 General appearance: Present: mild distress, obese Results - Labs CBC & Chem 7: 09/08/19 05:12 09/08/19 05:12 Labs: Laboratory Last Values WBC 13.6 K/mm3 (4.5-11.0) H 09/08/19 05:12 RBC 4.16 M/mm3 (3.65-5.03) 09/08/19 05:12 Hgb 11.4 gm/dl (11.8-15.2) L 09/08/19 05:12 Hct 34.6 % (35.5-45.6) L 09/08/19 05:12 MCV 83 fl (84-94) L 09/08/19 05:12 MCH 27 pg (28-32) L 09/08/19 05:12 MCHC 33 % (32-34) 09/08/19 05:12 RDW 16.5 % (13.2-15.2) H 09/08/19 05:12 Plt Count 136 K/mm3 (140-440) L 09/08/19 05:12 Lymph % (Auto) 3.2 % (13.4-35.0) L 09/08/19 05:12 [place] % (Auto) 6.6 % (0.0-7.3) 09/08/19 05:12 Eos % (Auto) 0.0 % (0.0-4.3) 09/08/19 05:12 Baso % (Auto) 0.2 % (0.0-1.8) 09/08/19 05:12 Lymph # 0.4 K/mm3 (1.2-5.4) L 09/08/19 05:12 [place] # 0.9 K/mm3 (0.0-0.8) H 09/08/19 05:12 Eos # 0.0 K/mm3 (0.0-0.4) 09/08/19 05:12 Baso # 0.0 K/mm3 (0.0-0.1) 09/08/19 05:12 Add Manual Diff Complete 09/07/19 09:10 Total Counted 100 09/07/19 09:10 Seg Neutrophils % 90.0 % (40.0-70.0) H 09/08/19 05:12 Seg Neuts % (Manual) 92.0 % (40.0-70.0) H 09/07/19 09:10 Band Neutrophils % 4.0 % 09/07/19 09:10 Lymphocytes % (Manual) 2.0 % (13.4-35.0) L 09/07/19 09:10 Reactive Lymphs % (Man) 0 % 09/07/19 09:10 Monocytes % (Manual) 2.0 % (0.0-7.3) 09/07/19 09:10 Eosinophils % (Manual) 0 % (0.0-4.3) 09/07/19 09:10 Basophils % (Manual) 0 % (0.0-1.8) 09/07/19 09:10 Metamyelocytes % 0 % 09/07/19 09:10 Myelocytes % 0 % 09/07/19 09:10 Promyelocytes % 0 % 09/07/19 09:10 Blast Cells % 0 % 09/07/19 09:10 Nucleated RBC % Not Reportable 09/07/19 09:10 Seg Neutrophils # 12.3 K/mm3 (1.8-7.7) H 09/08/19 05:12 Seg Neutrophils # Man 10.1 K/mm3 (1.8-7.7) H 09/07/19 09:10 Band Neutrophils # 0.4 K/mm3 09/07/19 09:10 Lymphocytes # (Manual) 0.2 K/mm3 (1.2-5.4) L 09/07/19 09:10 Abs React Lymphs (Man) 0.0 K/mm3 09/07/19 09:10 Monocytes # (Manual) 0.2 K/mm3 (0.0-0.8) 09/07/19 09:10 Eosinophils # (Manual) 0.0 K/mm3 (0.0-0.4) 09/07/19 09:10 Basophils # (Manual) 0.0 K/mm3 (0.0-0.1) 09/07/19 09:10 Metamyelocytes # 0.0 K/mm3 09/07/19 09:10 Myelocytes # 0.0 K/mm3 09/07/19 09:10 Promyelocytes # 0.0 K/mm3 09/07/19 09:10 Blast Cells # 0.0 K/mm3 09/07/19 09:10 WBC Morphology Not Reportable 09/07/19 09:10 Hypersegmented Neuts Not Reportable 09/07/19 09:10 Hyposegmented Neuts Not Reportable 09/07/19 09:10 Hypogranular Neuts Not Reportable 09/07/19 09:10 Smudge Cells Not Reportable 09/07/19 09:10 Toxic Granulation Not Reportable 09/07/19 09:10 Toxic Vacuolation Not Reportable 09/07/19 09:10 Dohle Bodies Not Reportable 09/07/19 09:10 Pelger-Huet Anomaly Not Reportable 09/07/19 09:10 Kayleigh Rods Not Reportable 09/07/19 09:10 Platelet Estimate Consistent w auto 09/07/19 09:10 Clumped Platelets Not Reportable 09/07/19 09:10 Plt Clumps, EDTA Not Reportable 09/07/19 09:10 Large Platelets Not Reportable 09/07/19 09:10 Giant Platelets Not Reportable 09/07/19 09:10 Platelet Satelliting Not Reportable 09/07/19 09:10 Plt Morphology Comment Not Reportable 09/07/19 09:10 RBC Morphology Not Reportable 09/07/19 09:10 Dimorphic RBCs Not Reportable 09/07/19 09:10 Polychromasia Not Reportable 09/07/19 09:10 Hypochromasia Not Reportable 09/07/19 09:10 Poikilocytosis Not Reportable 09/07/19 09:10 Anisocytosis Rare 09/07/19 09:10 Microcytosis Not Reportable 09/07/19 09:10 Macrocytosis Not Reportable 09/07/19 09:10 Spherocytes Not Reportable 09/07/19 09:10 Pappenheimer Bodies Not Reportable 09/07/19 09:10 Sickle Cells Not Reportable 09/07/19 09:10 Target Cells Not Reportable 09/07/19 09:10 Tear Drop Cells Not Reportable 09/07/19 09:10 Ovalocytes Not Reportable 09/07/19 09:10 Helmet Cells Not Reportable 09/07/19 09:10 Cif[place]es-Ring[place] Bodies Not Reportable 09/07/19 09:10 [place] Rings Not Reportable 09/07/19 09:10 River Cells Not Reportable 09/07/19 09:10 Bite Cells Not Reportable 09/07/19 09:10 Crenated Cell Not Reportable 09/07/19 09:10 Elliptocytes Not Reportable 09/07/19 09:10 Acanthocytes (Spur) Not Reportable 09/07/19 09:10 Rouleaux Not Reportable 09/07/19 09:10 Hemoglobin C Crystals Not Reportable 09/07/19 09:10 Schistocytes Not Reportable 09/07/19 09:10 Malaria parasites Not Reportable 09/07/19 09:10 Real Bodies Not Reportable 09/07/19 09:10 Hem Pathologist Commnt No 09/07/19 09:10 Sodium 142 mmol/L (137-145) D 09/08/19 05:12 Potassium 3.5 mmol/L (3.6-5.0) L 09/08/19 05:12 Chloride 103.4 mmol/L (98-107) 09/08/19 05:12 Carbon Dioxide 21 mmol/L (22-30) L 09/08/19 05:12 Anion Gap 21 mmol/L 09/08/19 05:12 BUN 21 mg/dL (9-20) H 09/08/19 05:12 Creatinine 1.1 mg/dL (0.8-1.5) 09/08/19 05:12 Estimated GFR > 60 ml/min 09/08/19 05:12 BUN/Creatinine Ratio 19 % 09/08/19 05:12 Glucose 105 mg/dL (75-100) H 09/08/19 05:12 POC Glucose 133 (70-105) H 09/07/19 09:06 Lactic Acid 0.80 mmol/L (0.7-2.0) 09/07/19 12:24 Calcium 7.7 mg/dL (8.4-10.2) L 09/08/19 05:12 Total Bilirubin 0.30 mg/dL (0.1-1.2) 09/08/19 05:12 AST 19 units/L (5-40) 09/08/19 05:12 ALT 12 units/L (7-56) 09/08/19 05:12 Alkaline Phosphatase 37 units/L (35-129) 09/08/19 05:12 Total Protein 5.4 g/dL (6.3-8.2) L 09/08/19 05:12 Albumin 2.7 g/dL (3.9-5) L 09/08/19 05:12 Albumin/Globulin Ratio 1.0 % 09/08/19 05:12 Urine Color Kelsy (Yellow) 09/07/19 10:00 Urine Turbidity Slightly-cloudy (Clear) 09/07/19 10:00 Urine pH 6.0 (5.0-7.0) 09/07/19 10:00 Ur Specific [place] 1.024 (1.003-1.030) 09/07/19 10:00 Urine Protein 100 mg/dl mg/dL (Negative) 09/07/19 10:00 Urine Glucose (UA) Neg mg/dL (Negative) 09/07/19 10:00 Urine Ketones 80 mg/dL (Negative) 09/07/19 10:00 Urine Blood Lg (Negative) 09/07/19 10:00 Urine Nitrite Neg (Negative) 09/07/19 10:00 Urine Bilirubin Neg (Negative) 09/07/19 10:00 Urine Urobilinogen < 2.0 mg/dL (<2.0) 09/07/19 10:00 Ur Leukocyte Esterase Neg (Negative) 09/07/19 10:00 Urine WBC (Auto) 6.0 /HPF (0.0-6.0) 09/07/19 10:00 Urine RBC (Auto) 68.0 /HPF (0.0-6.0) 09/07/19 10:00 U Epithel Cells (Auto) 1.0 /HPF (0-13.0) 09/07/19 10:00 Urine Bacteria (Auto) 1+ /HPF (Negative) 09/07/19 10:00 Urine Mucus 1+ /HPF 09/07/19 10:00 Microbiology: Microbiology 09/07/19 09:10 Peripheral/Venous Blood Culture - Preliminary Gram Negative Ralph 09/07/19 09:10 Peripheral/Venous Blood Culture - Preliminary Gram Negative Ralph Abreu/IV: Voiding Method Urinal IV Catheter Type [Left Upper Peripheral IV arm] IV Catheter Type [Right Peripheral IV Antecubital] Active Medications - Current Medications Current Medications: Generic Name Dose Route Start Last Admin Trade Name Freq PRN Reason Stop Dose Admin Acetaminophen 650 mg 09/07/19 14:08 09/08/19 11:40 Tylenol PO 650 mg Q4H PRN Administration Pain MILD(1-3)/Fever >100.5/BALDERAS Amlodipine Besylate 5 mg 09/08/19 10:00 09/08/19 10:12 Amlodipine PO 5 mg QDAY [facility]IO Administration Carbamazepine 200 mg 09/07/19 22:00 09/08/19 12:02 Tegretol PO 200 mg BID LUCIO Administration Gabapentin 900 mg 09/07/19 20:00 09/08/19 10:18 Gabapentin PO 900 mg TID LUCIO Administration Hydrochlorothiazide 12.5 mg 09/08/19 10:00 09/08/19 11:34 Hctz PO Not Given QDAY LUCIO Hydromorphone HCl 0.5 mg 09/08/19 14:04 Dilaudid IV Q3H PRN Pain , Severe (7-10) Metronidazole 500 mg in 100 mls @ 100 mls/hr 09/07/19 22:00 09/08/19 05:54 Flagyl 500 Mg/100 Ml IV 100 mls/hr Q8HR LUCIO Administration Protocol Piperacillin Sod/Tazobactam Sod 4.5 gm in 100 mls @ 200 mls/hr 09/07/19 22:00 09/08/19 07:20 Zosyn/Ns 4.5gm/100ml IV 200 mls/hr Q8HR LUCIO Administration Protocol Sodium Chloride 1,000 mls @ 125 mls/hr 09/07/19 14:15 09/08/19 11:19 Nacl 0.9% 1000 Ml IV 125 mls/hr DIRECT LUCIO Administration Losartan Potassium 50 mg 09/08/19 10:00 09/08/19 10:15 Cozaar PO 50 mg QDAY [facility]IO Administration Metoprolol Tartrate 25 mg 09/07/19 22:00 09/08/19 10:13 Metoprolol PO 25 mg BID LUCIO Administration Miscellaneous Medication 2,250 mg 09/07/19 20:00 Balsalazide Disodium [Colazal] PO TID [facility] Morphine Sulfate 2 mg 09/08/19 14:05 Morphine IV Q3H PRN Pain, Moderate (4-6) Ondansetron HCl 4 mg 09/07/19 14:08 Zofran IV Q8H PRN Nausea And Vomiting Pantoprazole Sodium 40 mg 09/08/19 10:00 09/08/19 10:13 Protonix PO 40 mg DAILY [facility]IO Administration Prednisone 60 mg 09/07/19 12:00 09/08/19 10:16 Deltasone PO 60 mg DAILY [facility] Administration Pyridostigmine Normal 120 mg 09/07/19 12:00 09/08/19 05:53 Mestinon PO Not Given Q6HR LUCIO Sodium Chloride 10 ml 09/07/19 22:00 09/08/19 11:35 Sodium Chloride Flush Syringe 10 Ml IV Not Given BID LUCIO Sodium Chloride 10 ml 09/07/19 14:08 Sodium Chloride Flush Syringe 10 Ml IV PRN PRN LINE FLUSH Tamsulosin HCl 0.4 mg 09/08/19 10:00 09/08/19 10:12 Flomax PO 0.4 mg QDAY LUCIO Administration
[2019-09-08] MEDS: HYDROmorphone 1 MG/1 ML INJ IV PRN ×3 (14:52→22:22)
[2019-09-08] MEDS ORDERED: SODIUM CHLORIDE 0.9% 1000 ML 1,000 ML IV ONE (15:43)
[2019-09-08] MEDS: FLUCONAZOLE 400 MG 200 ML IV SCH (18:12)
[2019-09-09] MEDS: PYRIDOSTIGMINE BROMIDE 60 MG TAB PO SCH ×4 (00:07→18:02)
[2019-09-09] MEDS: HYDROmorphone 1 MG/1 ML INJ IV PRN ×7 (01:02→22:33)
[2019-09-09] MEDS: PIPERACIL/TAZOBACTA 4.5/NS 100 4.5 GM/100 ML VIAL IV SCH ×2 (05:52→13:21)
--- NOTE | 2019-09-09 07:22 | Progress Note ---
Assessment and Plan Assessment and plan: 53 YO Male with HTN, Myasthenia Gravis, Ulcerative Colitis presents to ED for evaluation. Patient states that he has been experiencing abdominal pain over the past 2 weeks with worsening symptoms over the past 4 days. Patient also reports fever to 102 F. Patient's reports that patient did not receive his Solaris infusion due to feeling ill. Patient states his abdominal pain is 7/10, constant, crampy in nature, not worsened with exertion, not relieved with rest. EMS notified and upon arrival the patient was found to be in distress and subsequently transported to [facility] for further care and evaluation. Patient seen and evaluated in the emergency department. Lab and imaging studies reviewed. Patient underwent a CT scan of the abdomen and pelvis which showed evidence of diverticulitis. Patient admitted to surgical floor due to increased risk of decompensation. Patient treated with IV fluid resuscitation therapy, bowel rest, and IV antibiotic therapy. Surgical team consulted in ED. Patient denies chills, chest pain, palpitation, productive cough, recent ill contacts, ingestion of food/water from new or different sources, known exposure to COVID- 19. No prior admission for review. All medication listed at time of admission has been reconciled. CT A/P IMPRESSION: 1. Abnormality of the proximal sigmoid colon could represent localized colitis/diverticulitis. The findings could all be so be produced by carcinoma the colon. CT Chest: IMPRESSION: Unremarkable CT chest without contrast. CXR: IMPRESSION: 1. No acute findings. Severe Sepsis Gram Negative Bactermia Acute diverticulitis Ulcerative colitis Hyponatremia syndrome Acute Metabolic Encephalopathy Hypokalemia Myasthenia Gravis Thrombocytopnia Plan 09/08: Bcx: GNR- Continue antbiotics per ID. Check AM labs. Continue supportive care Pain control Replace Electrolytes ID consulted and I spoke to them Continue ABX PER ID. Follow Cultures Continue fluids Ok with sterods Will also give some magnesium DVT/GI PROPHY Plan of care discussed with team History Interval history: Patient seen and examined no new complaints reports improving pain. Hospitalist Physical - Physical exam Narrative exam: VITAL SIGNS: Reviewed. GENERAL: The patient appears normally developed, Vital signs as documented. HEAD: No signs of head trauma. EYES: Pupils are equal. Extraocular motions intact. EARS: Hearing grossly intact. MOUTH: Oropharynx is normal. NECK: No adenopathy, no JVD. CHEST: Chest with clear breath sounds bilaterally. No wheezes, rales, or rhonchi. CARDIAC: Regular rate and rhythm. S1 and S2, without murmurs, gallops, or ru bs. VASCULAR: No Edema. Peripheral pulses normal and equal in all extremities. ABDOMEN: Soft, distended, tender left lower quadrant. No rebound or guarding, and no masses palpated. Bowel Sounds normal. MUSCULOSKELETAL: Good range of motion of all major joints. Extremities without clubbing, cyanosis or edema. NEUROLOGIC EXAM: Alert and oriented x 3 No focal sensory or strength deficit s. Speech normal. Follows commands. PSYCHIATRIC: Mood normal. SKIN: detail exam as documented in skin assessment - Constitutional Vitals: Temp Pulse Resp BP Pulse Ox 97.5 F L 80 18 123/76 96 09/08/19 23:40 09/09/19 05:06 09/09/19 05:06 09/09/19 05:06 09/09/19 05:06 General appearance: Present: mild distress, obese Results - Labs CBC & Chem 7: 09/08/19 05:12 09/08/19 05:12 Labs: Laboratory Last Values WBC 13.6 K/mm3 (4.5-11.0) H 09/08/19 05:12 RBC 4.16 M/mm3 (3.65-5.03) 09/08/19 05:12 Hgb 11.4 gm/dl (11.8-15.2) L 09/08/19 05:12 Hct 34.6 % (35.5-45.6) L 09/08/19 05:12 MCV 83 fl (84-94) L 09/08/19 05:12 MCH 27 pg (28-32) L 09/08/19 05:12 MCHC 33 % (32-34) 09/08/19 05:12 RDW 16.5 % (13.2-15.2) H 09/08/19 05:12 Plt Count 136 K/mm3 (140-440) L 09/08/19 05:12 Lymph % (Auto) 3.2 % (13.4-35.0) L 09/08/19 05:12 [place] % (Auto) 6.6 % (0.0-7.3) 09/08/19 05:12 Eos % (Auto) 0.0 % (0.0-4.3) 09/08/19 05:12 Baso % (Auto) 0.2 % (0.0-1.8) 09/08/19 05:12 Lymph # 0.4 K/mm3 (1.2-5.4) L 09/08/19 05:12 [place] # 0.9 K/mm3 (0.0-0.8) H 09/08/19 05:12 Eos # 0.0 K/mm3 (0.0-0.4) 09/08/19 05:12 Baso # 0.0 K/mm3 (0.0-0.1) 09/08/19 05:12 Add Manual Diff Complete 09/07/19 09:10 Total Counted 100 09/07/19 09:10 Seg Neutrophils % 90.0 % (40.0-70.0) H 09/08/19 05:12 Seg Neuts % (Manual) 92.0 % (40.0-70.0) H 09/07/19 09:10 Band Neutrophils % 4.0 % 09/07/19 09:10 Lymphocytes % (Manual) 2.0 % (13.4-35.0) L 09/07/19 09:10 Reactive Lymphs % (Man) 0 % 09/07/19 09:10 Monocytes % (Manual) 2.0 % (0.0-7.3) 09/07/19 09:10 Eosinophils % (Manual) 0 % (0.0-4.3) 09/07/19 09:10 Basophils % (Manual) 0 % (0.0-1.8) 09/07/19 09:10 Metamyelocytes % 0 % 09/07/19 09:10 Myelocytes % 0 % 09/07/19 09:10 Promyelocytes % 0 % 09/07/19 09:10 Blast Cells % 0 % 09/07/19 09:10 Nucleated RBC % Not Reportable 09/07/19 09:10 Seg Neutrophils # 12.3 K/mm3 (1.8-7.7) H 09/08/19 05:12 Seg Neutrophils # Man 10.1 K/mm3 (1.8-7.7) H 09/07/19 09:10 Band Neutrophils # 0.4 K/mm3 09/07/19 09:10 Lymphocytes # (Manual) 0.2 K/mm3 (1.2-5.4) L 09/07/19 09:10 Abs React Lymphs (Man) 0.0 K/mm3 09/07/19 09:10 Monocytes # (Manual) 0.2 K/mm3 (0.0-0.8) 09/07/19 09:10 Eosinophils # (Manual) 0.0 K/mm3 (0.0-0.4) 09/07/19 09:10 Basophils # (Manual) 0.0 K/mm3 (0.0-0.1) 09/07/19 09:10 Metamyelocytes # 0.0 K/mm3 09/07/19 09:10 Myelocytes # 0.0 K/mm3 09/07/19 09:10 Promyelocytes # 0.0 K/mm3 09/07/19 09:10 Blast Cells # 0.0 K/mm3 09/07/19 09:10 WBC Morphology Not Reportable 09/07/19 09:10 Hypersegmented Neuts Not Reportable 09/07/19 09:10 Hyposegmented Neuts Not Reportable 09/07/19 09:10 Hypogranular Neuts Not Reportable 09/07/19 09:10 Smudge Cells Not Reportable 09/07/19 09:10 Toxic Granulation Not Reportable 09/07/19 09:10 Toxic Vacuolation Not Reportable 09/07/19 09:10 Dohle Bodies Not Reportable 09/07/19 09:10 Pelger-Huet Anomaly Not Reportable 09/07/19 09:10 Kayleigh Rods Not Reportable 09/07/19 09:10 Platelet Estimate Consistent w auto 09/07/19 09:10 Clumped Platelets Not Reportable 09/07/19 09:10 Plt Clumps, EDTA Not Reportable 09/07/19 09:10 Large Platelets Not Reportable 09/07/19 09:10 Giant Platelets Not Reportable 09/07/19 09:10 Platelet Satelliting Not Reportable 09/07/19 09:10 Plt Morphology Comment Not Reportable 09/07/19 09:10 RBC Morphology Not Reportable 09/07/19 09:10 Dimorphic RBCs Not Reportable 09/07/19 09:10 Polychromasia Not Reportable 09/07/19 09:10 Hypochromasia Not Reportable 09/07/19 09:10 Poikilocytosis Not Reportable 09/07/19 09:10 Anisocytosis Rare 09/07/19 09:10 Microcytosis Not Reportable 09/07/19 09:10 Macrocytosis Not Reportable 09/07/19 09:10 Spherocytes Not Reportable 09/07/19 09:10 Pappenheimer Bodies Not Reportable 09/07/19 09:10 Sickle Cells Not Reportable 09/07/19 09:10 Target Cells Not Reportable 09/07/19 09:10 Tear Drop Cells Not Reportable 09/07/19 09:10 Ovalocytes Not Reportable 09/07/19 09:10 Helmet Cells Not Reportable 09/07/19 09:10 [place] Bodies Not Reportable 09/07/19 09:10 [place] Rings Not Reportable 09/07/19 09:10 [place] Cells Not Reportable 09/07/19 09:10 Bite Cells Not Reportable 09/07/19 09:10 Crenated Cell Not Reportable 09/07/19 09:10 Elliptocytes Not Reportable 09/07/19 09:10 Acanthocytes (Spur) Not Reportable 09/07/19 09:10 Rouleaux Not Reportable 09/07/19 09:10 Hemoglobin C Crystals Not Reportable 09/07/19 09:10 Schistocytes Not Reportable 09/07/19 09:10 Malaria parasites Not Reportable 09/07/19 09:10 Real Bodies Not Reportable 09/07/19 09:10 Hem Pathologist Commnt No 09/07/19 09:10 Sodium 142 mmol/L (137-145) D 09/08/19 05:12 Potassium 3.5 mmol/L (3.6-5.0) L 09/08/19 05:12 Chloride 103.4 mmol/L (98-107) 09/08/19 05:12 Carbon Dioxide 21 mmol/L (22-30) L 09/08/19 05:12 Anion Gap 21 mmol/L 09/08/19 05:12 BUN 21 mg/dL (9-20) H 09/08/19 05:12 Creatinine 1.1 mg/dL (0.8-1.5) 09/08/19 05:12 Estimated GFR > 60 ml/min 09/08/19 05:12 BUN/Creatinine Ratio 19 % 09/08/19 05:12 Glucose 105 mg/dL (75-100) H 09/08/19 05:12 POC Glucose 133 (70-105) H 09/07/19 09:06 Lactic Acid 0.80 mmol/L (0.7-2.0) 09/07/19 12:24 Calcium 7.7 mg/dL (8.4-10.2) L 09/08/19 05:12 Magnesium 2.40 mg/dL (1.7-2.3) H 09/08/19 15:16 Total Bilirubin 0.30 mg/dL (0.1-1.2) 09/08/19 05:12 AST 19 units/L (5-40) 09/08/19 05:12 ALT 12 units/L (7-56) 09/08/19 05:12 Alkaline Phosphatase 37 units/L (35-129) 09/08/19 05:12 C-Reactive Protein 28.60 mg/dL (0.00-1.30) H 09/08/19 15:16 Total Protein 5.4 g/dL (6.3-8.2) L 09/08/19 05:12 Albumin 2.7 g/dL (3.9-5) L 09/08/19 05:12 Albumin/Globulin Ratio 1.0 % 09/08/19 05:12 Urine Color [place] (Yellow) 09/07/19 10:00 Urine Turbidity Slightly-cloudy (Clear) 09/07/19 10:00 Urine pH 6.0 (5.0-7.0) 09/07/19 10:00 Ur Specific [place] 1.024 (1.003-1.030) 09/07/19 10:00 Urine Protein 100 mg/dl mg/dL (Negative) 09/07/19 10:00 Urine Glucose (UA) Neg mg/dL (Negative) 09/07/19 10:00 Urine Ketones 80 mg/dL (Negative) 09/07/19 10:00 Urine Blood Lg (Negative) 09/07/19 10:00 Urine Nitrite Neg (Negative) 09/07/19 10:00 Urine Bilirubin Neg (Negative) 09/07/19 10:00 Urine Urobilinogen < 2.0 mg/dL (<2.0) 09/07/19 10:00 Ur Leukocyte Esterase Neg (Negative) 09/07/19 10:00 Urine WBC (Auto) 6.0 /HPF (0.0-6.0) 09/07/19 10:00 Urine RBC (Auto) 68.0 /HPF (0.0-6.0) 09/07/19 10:00 U Epithel Cells (Auto) 1.0 /HPF (0-13.0) 09/07/19 10:00 Urine Bacteria (Auto) 1+ /HPF (Negative) 09/07/19 10:00 Urine Mucus 1+ /HPF 09/07/19 10:00 Microbiology: Microbiology 09/07/19 10:00 Urine,Clean Catch Urine Culture - Preliminary 09/07/19 09:10 Peripheral/Venous Blood Culture - Preliminary Gram Negative Ralph 09/07/19 09:10 Peripheral/Venous Blood Culture - Preliminary Gram Negative Ralph Abreu/IV: Voiding Method Urinal IV Catheter Type [Right Upper INT / Saline Lock arm] IV Catheter Type [Left Upper Peripheral IV arm] IV Catheter Type [Right Peripheral IV Antecubital] Active Medications - Current Medications Current Medications: Generic Name Dose Route Start Last Admin Trade Name Freq PRN Reason Stop Dose Admin Acetaminophen 650 mg 09/07/19 14:08 09/08/19 11:40 Tylenol PO 650 mg Q4H PRN Administration Pain MILD(1-3)/Fever >100.5/BALDERAS Amlodipine Besylate 5 mg 09/08/19 10:00 09/08/19 10:12 Amlodipine PO 5 mg QDAY LUCIO Administration Carbamazepine 200 mg 09/07/19 22:00 09/08/19 22:21 Tegretol PO 200 mg BID LUCIO Administration Gabapentin 900 mg 09/07/19 20:00 09/08/19 20:18 Gabapentin PO 900 mg TID LUCIO Administration Hydrochlorothiazide 12.5 mg 09/08/19 10:00 09/08/19 11:34 Hctz PO Not Given QDAY LUCIO Hydromorphone HCl 0.5 mg 09/08/19 14:04 09/09/19 04:00 Dilaudid IV 0.5 mg Q3H PRN Administration Pain , Severe (7-10) Piperacillin Sod/Tazobactam Sod 4.5 gm in 100 mls @ 200 mls/hr 09/07/19 22:00 09/09/19 05:52 Zosyn/Ns 4.5gm/100ml IV 200 mls/hr Q8HR LUCIO Administration Protocol Sodium Chloride 1,000 mls @ 125 mls/hr 09/07/19 14:15 09/08/19 18:05 Nacl 0.9% 1000 Ml IV 125 mls/hr DIRECT LUCIO Administration Fluconazole 200 mls @ 100 mls/hr 09/08/19 16:00 09/08/19 18:12 Diflucan IV 100 mls/hr Q24HR LUCIO Administration Protocol Losartan Potassium 50 mg 09/08/19 10:00 09/08/19 10:15 Cozaar PO 50 mg QDAY LUCIO Administration Metoprolol Tartrate 25 mg 09/07/19 22:00 09/08/19 22:21 Metoprolol PO 25 mg BID LUCIO Administration Miscellaneous Medication 2,250 mg 09/07/19 20:00 Balsalazide Disodium [Colazal] PO TID LUCIO Morphine Sulfate 2 mg 09/08/19 14:05 09/08/19 17:28 Morphine IV 2 mg Q3H PRN Administration Pain, Moderate (4-6) Ondansetron HCl 4 mg 09/07/19 14:08 Zofran IV Q8H PRN Nausea And Vomiting Pantoprazole Sodium 40 mg 09/08/19 10:00 09/08/19 10:13 Protonix PO 40 mg DAILY LUCIO Administration Prednisone 60 mg 09/07/19 12:00 09/08/19 10:16 Deltasone PO 60 mg DAILY LUCIO Administration Pyridostigmine [place] 120 mg 09/07/19 12:00 09/09/19 05:49 Mestinon PO 120 mg Q6HR LUCIO Administration Sodium Chloride 10 ml 09/07/19 22:00 09/08/19 11:35 Sodium Chloride Flush Syringe 10 Ml IV Not Given BID LUCIO Sodium Chloride 10 ml 09/07/19 14:08 Sodium Chloride Flush Syringe 10 Ml IV PRN PRN LINE FLUSH Tamsulosin HCl 0.4 mg 09/08/19 10:00 09/08/19 10:12 Flomax PO 0.4 mg QDAY LUCIO Administration
[2019-09-09] MEDS: predniSONE 20 MG TAB PO SCH (09:04)
[2019-09-09] MEDS: METOPROLOL TARTRATE 25 MG TAB PO SCH ×2 (09:04→22:30)
[2019-09-09] MEDS: FLUCONAZOLE 400 MG 200 ML IV SCH (09:04)
[2019-09-09] MEDS: TAMSULOSIN 0.4 MG CAP PO SCH (09:04)
[2019-09-09] MEDS: GABAPENTIN 300 MG CAP PO SCH ×3 (09:05→22:30)
[2019-09-09] MEDS: LOSARTAN 50 MG TAB PO SCH (09:05)
[2019-09-09] MEDS: hydroCHLOROthiazide 12.5 MG CAP PO SCH (09:06)
[2019-09-09] MEDS: PANTOPRAZOLE 40 MG TAB PO SCH (09:06)
[2019-09-09] MEDS: amLODIPine 5 MG TAB PO SCH (09:06)
[2019-09-09] MEDS: carBAMazepine 200 MG TAB PO SCH ×2 (09:16→22:30)
[2019-09-09] MEDS: ACETAMINOPHEN 325 MG TAB PO PRN (12:00)
--- NOTE | 2019-09-09 13:11 | Progress Note ---
Assessment and Plan - Patient Problems (1) Acute diverticulitis Current Visit: Yes Status: Acute Plan to address problem: 1. acute uncomplicated sigmoid diverticulitis 2. History of ulcerative colitis 3. sepsis 2/2 #1 Based on history, patient showing signs of improvement. He is passing flatus and pain is less. Plan: 1. Start clear liquid diet 2. IVF 3. IV abx 4. ID consulted 5. prn pain control 6. DVT ppx 7. bl cx - gram neg rods 8. Will re-CT if patient start to show signs of regressing. 9. Ambulate Plan discussed with patient. Will follow along. Please call with questions. time=10min Subjective Date of service: 09/09/19 Patient Reports: Positive: feels better, pain is less, flatus, fever. Negative: nausea, vomiting Objective Vital Signs - 12hr 09/09/19 09/09/19 09/09/19 01:32 04:00 04:30 Temperature Pulse Rate Respiratory 16 20 16 Rate Blood Pressure Blood Pressure [Left] O2 Sat by Pulse Oximetry 09/09/19 09/09/19 09/09/19 05:06 07:51 09:04 Temperature 99.6 F Pulse Rate 80 77 77 Respiratory 18 19 Rate Blood Pressure 137/79 137/79 Blood Pressure 123/76 [Left] O2 Sat by Pulse 96 98 Oximetry 09/09/19 11:30 Temperature 100.1 F H Pulse Rate 79 Respiratory 19 Rate Blood Pressure 120/71 Blood Pressure [Left] O2 Sat by Pulse 93 Oximetry - General physical appearance no distress, no pain, obese - Respiratory normal expansion, normal respiratory effort - Abdomen soft, tender (focal in LLQ), not guarding, not rigid, other (protuberant abdomen) - Integumentary no rash, no growths, no abnormal pigmentation - Psychiatric oriented to time, oriented to person, oriented to place, speech is normal, memory intact - Labs 09/08/19 05:12 09/08/19 05:12
[2019-09-09] MEDS: SODIUM CHLORIDE 0.9% 1000 ML 1,000 ML IV SCH (13:22)
[2019-09-10] MEDS: HYDROmorphone 1 MG/1 ML INJ IV PRN ×3 (02:15→20:45)
[2019-09-10] MEDS: PIPERACIL/TAZOBACTA 4.5/NS 100 4.5 GM/100 ML VIAL IV SCH ×3 (06:00→21:38)
[2019-09-10] MEDS: PYRIDOSTIGMINE BROMIDE 60 MG TAB PO SCH ×5 (06:00→20:44)
[2019-09-10 07:52] LABS: Hematocrit 31.3 % (35.5-45.6); Hemoglobin 10.3 gm/dl (11.8-15.2); Mean Corpuscular HGB Conc 33 % (32-34); Mean Corpuscular Volume 85 fl (84-94); Platelet Count 142 K/mm3 (140-440); Red Blood Count 3.67 M/mm3 (3.65-5.03); Red Cell Distribution Width 17.3 % (13.2-15.2)
[2019-09-10 08:09] LABS: BUN/Creatinine Ratio 23; Blood Urea Nitrogen 21 mg/dL (9-20); Calcium 7.7 mg/dL (8.4-10.2); Hemolysis Index 4
[2019-09-10] MEDS: SODIUM CHLORIDE 0.9% 1000 ML 1,000 ML IV SCH (08:12)
[2019-09-10] MEDS: GABAPENTIN 300 MG CAP PO SCH ×3 (08:25→20:49)
[2019-09-10] MEDS: amLODIPine 5 MG TAB PO SCH ×2 (08:26→10:00)
[2019-09-10] MEDS: predniSONE 20 MG TAB PO SCH ×2 (08:28→10:00)
[2019-09-10] MEDS: carBAMazepine 200 MG TAB PO SCH ×3 (08:28→21:36)
[2019-09-10] MEDS: PANTOPRAZOLE 40 MG TAB PO SCH ×2 (08:28→10:00)
[2019-09-10] MEDS: LOSARTAN 50 MG TAB PO SCH ×2 (08:29→10:00)
[2019-09-10] MEDS: TAMSULOSIN 0.4 MG CAP PO SCH ×2 (08:30→10:00)
[2019-09-10] MEDS: METOPROLOL TARTRATE 25 MG TAB PO SCH ×3 (08:36→21:35)
[2019-09-10] MEDS: hydroCHLOROthiazide 12.5 MG CAP PO SCH ×2 (08:36→10:00)
[2019-09-10] MEDS: FLUCONAZOLE 400 MG 200 ML IV SCH (10:05)
--- NOTE | 2019-09-10 10:46 | Progress Note ---
Assessment and Plan Assessment and plan: 53 YO Male with HTN, Myasthenia Gravis, Ulcerative Colitis presents to ED for evaluation. Patient states that he has been experiencing abdominal pain over the past 2 weeks with worsening symptoms over the past 4 days. Patient also reports fever to 102 F. Patient's reports that patient did not receive his Solaris infusion due to feeling ill. Patient states his abdominal pain is 7/10, constant, crampy in nature, not worsened with exertion, not relieved with rest. EMS notified and upon arrival the patient was found to be in distress and subsequently transported to [facility] for further care and evaluation. Patient seen and evaluated in the emergency department. Lab and imaging studies reviewed. Patient underwent a CT scan of the abdomen and pelvis which showed evidence of diverticulitis. Patient admitted to surgical floor due to increased risk of decompensation. Patient treated with IV fluid resuscitation therapy, bowel rest, and IV antibiotic therapy. Surgical team consulted in ED. Patient denies chills, chest pain, palpitation, productive cough, recent ill contacts, ingestion of food/water from new or different sources, known exposure to COVID- 19. No prior admission for review. All medication listed at time of admission has been reconciled. CT A/P IMPRESSION: 1. Abnormality of the proximal sigmoid colon could represent localized colitis/diverticulitis. The findings could all be so be produced by carcinoma the colon. CT Chest: IMPRESSION: Unremarkable CT chest without contrast. CXR: IMPRESSION: 1. No acute findings. Severe Sepsis Gram Negative Bactermia Acute diverticulitis Ulcerative colitis Hyponatremia syndrome Acute Metabolic Encephalopathy Hypokalemia Myasthenia Gravis Thrombocytopnia Plan 09/08: Bcx: GNR- Continue antbiotics per ID. Check AM labs. 09/09: Patient is tolerating clear liquid diet. No further fever noted today. Reports that he is ambulating well. We will continue to monitor and await further recommendation by surgery and ID. Plan discussed with the nursing staff and patient Continue supportive care Pain control Replace Electrolytes ID consulted and I spoke to them Continue ABX PER ID. Follow Cultures Continue fluids Ok with sterods Will also give some magnesium DVT/GI PROPHY Plan of care discussed with team History Interval history: Patient seen and examined no new complaints reports improving pain. Tolerating clear liquids no other adverse event reported by nursing staff Hospitalist Physical - Physical exam Narrative exam: VITAL SIGNS: Reviewed. GENERAL: The patient appears normally developed, Vital signs as documented. HEAD: No signs of head trauma. EYES: Pupils are equal. Extraocular motions intact. EARS: Hearing grossly intact. MOUTH: Oropharynx is normal. NECK: No adenopathy, no JVD. CHEST: Chest with clear breath sounds bilaterally. No wheezes, rales, or rhonchi. CARDIAC: Regular rate and rhythm. S1 and S2, without murmurs, gallops, or rubs. VASCULAR: No Edema. Peripheral pulses normal and equal in all extremities. ABDOMEN: Soft, distended but improved, tender left lower quadrant. No rebound or guarding, and no masses palpated. Bowel Sounds normal. MUSCULOSKELETAL: Good range of motion of all major joints. Extremities without clubbing, cyanosis or edema. NEUROLOGIC EXAM: Alert and oriented x 3 No focal sensory or strength deficits. Speech normal. Follows commands. PSYCHIATRIC: Mood normal. SKIN: detail exam as documented in skin assessment - Constitutional Vitals: Temp Pulse Resp BP Pulse Ox 98.2 F 84 19 138/89 97 09/10/19 07:18 09/10/19 08:36 09/10/19 07:18 09/10/19 08:36 09/10/19 07:18 General appearance: Present: mild distress, obese Results - Labs CBC & Chem 7: 09/10/19 07:02 09/10/19 07:02 Labs: Laboratory Last Values WBC 12.7 K/mm3 (4.5-11.0) H 09/10/19 07:02 RBC 3.67 M/mm3 (3.65-5.03) 09/10/19 07:02 Hgb 10.3 gm/dl (11.8-15.2) L 09/10/19 07:02 Hct 31.3 % (35.5-45.6) L 09/10/19 07:02 MCV 85 fl (84-94) 09/10/19 07:02 MCH 28 pg (28-32) 09/10/19 07:02 MCHC 33 % (32-34) 09/10/19 07:02 RDW 17.3 % (13.2-15.2) H 09/10/19 07:02 Plt Count 142 K/mm3 (140-440) 09/10/19 07:02 Lymph % (Auto) 3.2 % (13.4-35.0) L 09/08/19 05:12 [place] % (Auto) 6.6 % (0.0-7.3) 09/08/19 05:12 Eos % (Auto) 0.0 % (0.0-4.3) 09/08/19 05:12 Baso % (Auto) 0.2 % (0.0-1.8) 09/08/19 05:12 Lymph # 0.4 K/mm3 (1.2-5.4) L 09/08/19 05:12 [place] # 0.9 K/mm3 (0.0-0.8) H 09/08/19 05:12 Eos # 0.0 K/mm3 (0.0-0.4) 09/08/19 05:12 Baso # 0.0 K/mm3 (0.0-0.1) 09/08/19 05:12 Add Manual Diff Complete 09/07/19 09:10 Total Counted 100 09/07/19 09:10 Seg Neutrophils % 90.0 % (40.0-70.0) H 09/08/19 05:12 Seg Neuts % (Manual) 92.0 % (40.0-70.0) H 09/07/19 09:10 Band Neutrophils % 4.0 % 09/07/19 09:10 Lymphocytes % (Manual) 2.0 % (13.4-35.0) L 09/07/19 09:10 Reactive Lymphs % (Man) 0 % 09/07/19 09:10 Monocytes % (Manual) 2.0 % (0.0-7.3) 09/07/19 09:10 Eosinophils % (Manual) 0 % (0.0-4.3) 09/07/19 09:10 Basophils % (Manual) 0 % (0.0-1.8) 09/07/19 09:10 Metamyelocytes % 0 % 09/07/19 09:10 Myelocytes % 0 % 09/07/19 09:10 Promyelocytes % 0 % 09/07/19 09:10 Blast Cells % 0 % 09/07/19 09:10 Nucleated RBC % Not Reportable 09/07/19 09:10 Seg Neutrophils # 12.3 K/mm3 (1.8-7.7) H 09/08/19 05:12 Seg Neutrophils # Man 10.1 K/mm3 (1.8-7.7) H 09/07/19 09:10 Band Neutrophils # 0.4 K/mm3 09/07/19 09:10 Lymphocytes # (Manual) 0.2 K/mm3 (1.2-5.4) L 09/07/19 09:10 Abs React Lymphs (Man) 0.0 K/mm3 09/07/19 09:10 Monocytes # (Manual) 0.2 K/mm3 (0.0-0.8) 09/07/19 09:10 Eosinophils # (Manual) 0.0 K/mm3 (0.0-0.4) 09/07/19 09:10 Basophils # (Manual) 0.0 K/mm3 (0.0-0.1) 09/07/19 09:10 Metamyelocytes # 0.0 K/mm3 09/07/19 09:10 Myelocytes # 0.0 K/mm3 09/07/19 09:10 Promyelocytes # 0.0 K/mm3 09/07/19 09:10 Blast Cells # 0.0 K/mm3 09/07/19 09:10 WBC Morphology Not Reportable 09/07/19 09:10 Hypersegmented Neuts Not Reportable 09/07/19 09:10 Hyposegmented Neuts Not Reportable 09/07/19 09:10 Hypogranular Neuts Not Reportable 09/07/19 09:10 Smudge Cells Not Reportable 09/07/19 09:10 Toxic Granulation Not Reportable 09/07/19 09:10 Toxic Vacuolation Not Reportable 09/07/19 09:10 Dohle Bodies Not Reportable 09/07/19 09:10 Pelger-Huet Anomaly Not Reportable 09/07/19 09:10 Kayleigh Rods Not Reportable 09/07/19 09:10 Platelet Estimate Consistent w auto 09/07/19 09:10 Clumped Platelets Not Reportable 09/07/19 09:10 Plt Clumps, EDTA Not Reportable 09/07/19 09:10 Large Platelets Not Reportable 09/07/19 09:10 Giant Platelets Not Reportable 09/07/19 09:10 Platelet Satelliting Not Reportable 09/07/19 09:10 Plt Morphology Comment Not Reportable 09/07/19 09:10 RBC Morphology Not Reportable 09/07/19 09:10 Dimorphic RBCs Not Reportable 09/07/19 09:10 Polychromasia Not Reportable 09/07/19 09:10 Hypochromasia Not Reportable 09/07/19 09:10 Poikilocytosis Not Reportable 09/07/19 09:10 Anisocytosis Rare 09/07/19 09:10 Microcytosis Not Reportable 09/07/19 09:10 Macrocytosis Not Reportable 09/07/19 09:10 Spherocytes Not Reportable 09/07/19 09:10 Pappenheimer Bodies Not Reportable 09/07/19 09:10 Sickle Cells Not Reportable 09/07/19 09:10 Target Cells Not Reportable 09/07/19 09:10 Tear Drop Cells Not Reportable 09/07/19 09:10 Ovalocytes Not Reportable 09/07/19 09:10 Helmet Cells Not Reportable 09/07/19 09:10 Cifuentes-Creswell Bodies Not Reportable 09/07/19 09:10 Rawlings Rings Not Reportable 09/07/19 09:10 River Cells Not Reportable 09/07/19 09:10 Bite Cells Not Reportable 09/07/19 09:10 Crenated Cell Not Reportable 09/07/19 09:10 Elliptocytes Not Reportable 09/07/19 09:10 Acanthocytes (Spur) Not Reportable 09/07/19 09:10 Rouleaux Not Reportable 09/07/19 09:10 Hemoglobin C Crystals Not Reportable 09/07/19 09:10 Schistocytes Not Reportable 09/07/19 09:10 Malaria parasites Not Reportable 09/07/19 09:10 Real Bodies Not Reportable 09/07/19 09:10 Hem Pathologist Commnt No 09/07/19 09:10 Sodium 140 mmol/L (137-145) 09/10/19 07:02 Potassium 3.7 mmol/L (3.6-5.0) 09/10/19 07:02 Chloride 105.8 mmol/L (98-107) 09/10/19 07:02 Carbon Dioxide 23 mmol/L (22-30) 09/10/19 07:02 Anion Gap 15 mmol/L 09/10/19 07:02 BUN 21 mg/dL (9-20) H 09/10/19 07:02 Creatinine 0.9 mg/dL (0.8-1.5) 09/10/19 07:02 Estimated GFR > 60 ml/min 09/10/19 07:02 BUN/Creatinine Ratio 23 % 09/10/19 07:02 Glucose 98 mg/dL (75-100) 09/10/19 07:02 POC Glucose 133 (70-105) H 09/07/19 09:06 Lactic Acid 0.80 mmol/L (0.7-2.0) 09/07/19 12:24 Calcium 7.7 mg/dL (8.4-10.2) L 09/10/19 07:02 Magnesium 2.40 mg/dL (1.7-2.3) H 09/08/19 15:16 Total Bilirubin 0.30 mg/dL (0.1-1.2) 09/08/19 05:12 AST 19 units/L (5-40) 09/08/19 05:12 ALT 12 units/L (7-56) 09/08/19 05:12 Alkaline Phosphatase 37 units/L (35-129) 09/08/19 05:12 C-Reactive Protein 28.60 mg/dL (0.00-1.30) H 09/08/19 15:16 Total Protein 5.4 g/dL (6.3-8.2) L 09/08/19 05:12 Albumin 2.7 g/dL (3.9-5) L 09/08/19 05:12 Albumin/Globulin Ratio 1.0 % 09/08/19 05:12 Urine Color [place] (Yellow) 09/07/19 10:00 Urine Turbidity Slightly-cloudy (Clear) 09/07/19 10:00 Urine pH 6.0 (5.0-7.0) 09/07/19 10:00 Ur Specific [place] 1.024 (1.003-1.030) 09/07/19 10:00 Urine Protein 100 mg/dl mg/dL (Negative) 09/07/19 10:00 Urine Glucose (UA) Neg mg/dL (Negative) 09/07/19 10:00 Urine Ketones 80 mg/dL (Negative) 09/07/19 10:00 Urine Blood Lg (Negative) 09/07/19 10:00 Urine Nitrite Neg (Negative) 09/07/19 10:00 Urine Bilirubin Neg (Negative) 09/07/19 10:00 Urine Urobilinogen < 2.0 mg/dL (<2.0) 09/07/19 10:00 Ur Leukocyte Esterase Neg (Negative) 09/07/19 10:00 Urine WBC (Auto) 6.0 /HPF (0.0-6.0) 09/07/19 10:00 Urine RBC (Auto) 68.0 /HPF (0.0-6.0) 09/07/19 10:00 U Epithel Cells (Auto) 1.0 /HPF (0-13.0) 09/07/19 10:00 Urine Bacteria (Auto) 1+ /HPF (Negative) 09/07/19 10:00 Urine Mucus 1+ /HPF 09/07/19 10:00 Abreu/IV: Voiding Method Urinal IV Catheter Type [Right Upper INT / Saline Lock arm] IV Catheter Type [Left Upper Peripheral IV arm] IV Catheter Type [Right Peripheral IV Antecubital] Active Medications - Current Medications Current Medications: Generic Name Dose Route Start Last Admin Trade Name Freq PRN Reason Stop Dose Admin Acetaminophen 650 mg 09/07/19 14:08 09/09/19 12:00 Tylenol PO 650 mg Q4H PRN Administration Pain MILD(1-3)/Fever >100.5/BALDERAS Amlodipine Besylate 5 mg 09/08/19 10:00 09/10/19 08:26 Amlodipine PO 5 mg QDAY LUCIO Administration Carbamazepine 200 mg 09/07/19 22:00 09/10/19 08:28 Tegretol PO 200 mg BID LUCIO Administration Gabapentin 900 mg 09/07/19 20:00 09/10/19 08:25 Gabapentin PO 900 mg TID LUCIO Administration Hydrochlorothiazide 12.5 mg 09/08/19 10:00 09/10/19 08:36 Hctz PO 12.5 mg QDAY LUCIO Administration Hydromorphone HCl 0.5 mg 09/08/19 14:04 09/10/19 08:18 Dilaudid IV 0.5 mg Q3H PRN Administration Pain , Severe (7-10) Piperacillin Sod/Tazobactam Sod 4.5 gm in 100 mls @ 200 mls/hr 09/07/19 22:00 09/10/19 06:00 Zosyn/Ns 4.5gm/100ml IV 200 mls/hr Q8HR LUCIO Administration Protocol Sodium Chloride 1,000 mls @ 125 mls/hr 09/07/19 14:15 09/10/19 08:12 Nacl 0.9% 1000 Ml IV 125 mls/hr DIRECT LUCIO Administration Fluconazole 200 mls @ 100 mls/hr 09/08/19 16:00 09/09/19 09:04 Diflucan IV 100 mls/hr Q24HR LUCIO Administration Protocol Losartan Potassium 50 mg 09/08/19 10:00 09/10/19 08:29 Cozaar PO 50 mg QDAY LUCIO Administration Metoprolol Tartrate 25 mg 09/07/19 22:00 09/10/19 08:36 Metoprolol PO 25 mg BID LUCIO Administration Miscellaneous Medication 2,250 mg 09/07/19 20:00 Balsalazide Disodium [Colazal] PO TID LUCIO Morphine Sulfate 2 mg 09/08/19 14:05 09/08/19 17:28 Morphine IV 2 mg Q3H PRN Administration Pain, Moderate (4-6) Ondansetron HCl 4 mg 09/07/19 14:08 Zofran IV Q8H PRN Nausea And Vomiting Pantoprazole Sodium 40 mg 09/08/19 10:00 09/10/19 08:28 Protonix PO 40 mg DAILY LUCIO Administration Prednisone 60 mg 09/07/19 12:00 09/10/19 08:28 Deltasone PO 60 mg DAILY LUCIO Administration Pyridostigmine [place] 120 mg 09/07/19 12:00 09/10/19 06:00 Mestinon PO 120 mg Q6HR LUCIO Administration Sodium Chloride 10 ml 09/07/19 22:00 09/10/19 06:53 Sodium Chloride Flush Syringe 10 Ml IV 10 ml BID LUCIO Administration Sodium Chloride 10 ml 09/07/19 14:08 Sodium Chloride Flush Syringe 10 Ml IV PRN PRN LINE FLUSH Tamsulosin HCl 0.4 mg 09/08/19 10:00 09/10/19 08:30 Flomax PO 0.4 mg QDAY LUCIO Administration
[2019-09-10] MEDS: MORPHINE 2 MG/1 ML INJ IV PRN ×2 (13:15→16:36)
[2019-09-10] MEDS: ACETAMINOPHEN 325 MG TAB PO PRN (13:16)
--- NOTE | 2019-09-10 13:23 | Progress Note ---
Assessment and Plan - Patient Problems (1) Acute diverticulitis Current Visit: Yes Status: Acute Plan to address problem: 1. acute uncomplicated sigmoid diverticulitis 2. History of ulcerative colitis 3. sepsis 2/2 #1 Based on history, patient showing signs of improvement. He is passing flatus, had a BM, and pain is less. Less concerned now that he will require any surgery during this admission. Plan: 1. Advance to full liquid diet. 2. IVF - bolus today as he is still clinically very dry 3. IV abx 4. ID consulted 5. prn pain control 6. DVT ppx 7. bl cx - gram neg rods 8. Will re-CT if patient start to show signs of regressing. 9. Ambulate Plan discussed with patient. Will follow along. Please call with questions. time=10min Subjective Date of service: 09/10/19 Patient Reports: Positive: feels better, pain is less (pain is not primarily from his chronic low back pain.), tolerating liquids well, flatus, bowel movement. Negative: nausea, vomiting Objective Vital Signs - 12hr 09/10/19 09/10/19 09/10/19 02:15 02:45 03:55 Temperature 98.3 F Pulse Rate 72 Respiratory 18 20 18 Rate Blood Pressure 111/64 O2 Sat by Pulse 96 Oximetry 09/10/19 09/10/19 09/10/19 07:18 08:26 08:29 Temperature 98.2 F Pulse Rate 84 84 84 Respiratory 19 Rate Blood Pressure 138/89 138/89 138/89 O2 Sat by Pulse 97 Oximetry 09/10/19 09/10/19 08:36 12:01 Temperature 100.4 F H Pulse Rate 84 96 H Respiratory 19 Rate Blood Pressure 138/89 140/93 O2 Sat by Pulse 98 Oximetry - General physical appearance no distress, no pain, obese, other (looks better) - Respiratory normal expansion, normal respiratory effort - Abdomen soft, tender (focal in LLQ), not rebound, not guarding - Integumentary no rash, no growths, no abnormal pigmentation - Psychiatric oriented to time, oriented to person, oriented to place, speech is normal, memory intact - Labs 09/10/19 07:02 09/10/19 07:02 Diabetes panel 09/10/19 Range/Units 07:02 Sodium 140 (137-145) mmol/L Potassium 3.7 (3.6-5.0) mmol/L Chloride 105.8 (98-107) mmol/L Carbon Dioxide 23 (22-30) mmol/L BUN 21 H (9-20) mg/dL Creatinine 0.9 (0.8-1.5) mg/dL Glucose 98 (75-100) mg/dL Calcium 7.7 L (8.4-10.2) mg/dL Calcium panel 09/10/19 Range/Units 07:02 Calcium 7.7 L (8.4-10.2) mg/dL Pituitary panel 09/10/19 Range/Units 07:02 Sodium 140 (137-145) mmol/L Potassium 3.7 (3.6-5.0) mmol/L Chloride 105.8 (98-107) mmol/L Carbon Dioxide 23 (22-30) mmol/L BUN 21 H (9-20) mg/dL Creatinine 0.9 (0.8-1.5) mg/dL Glucose 98 (75-100) mg/dL Calcium 7.7 L (8.4-10.2) mg/dL Adrenal panel 09/10/19 Range/Units 07:02 Sodium 140 (137-145) mmol/L Potassium 3.7 (3.6-5.0) mmol/L Chloride 105.8 (98-107) mmol/L Carbon Dioxide 23 (22-30) mmol/L BUN 21 H (9-20) mg/dL Creatinine 0.9 (0.8-1.5) mg/dL Glucose 98 (75-100) mg/dL Calcium 7.7 L (8.4-10.2) mg/dL
[2019-09-10] MEDS ORDERED: LACTATED RINGERS 1,000 ML IV ONE (13:58)
[2019-09-11] MEDS: HYDROmorphone 1 MG/1 ML INJ IV PRN ×7 (00:11→23:24)
[2019-09-11] MEDS: PYRIDOSTIGMINE BROMIDE 60 MG TAB PO SCH ×5 (03:47→23:03)
[2019-09-11] MEDS: PIPERACIL/TAZOBACTA 4.5/NS 100 4.5 GM/100 ML VIAL IV SCH ×2 (06:23→14:51)
--- NOTE | 2019-09-11 09:40 | Progress Note ---
Assessment and Plan - Patient Problems (1) Acute diverticulitis Current Visit: Yes Status: Acute Plan to address problem: 1. acute uncomplicated sigmoid diverticulitis 2. History of ulcerative colitis 3. sepsis 2/2 #1 Based on history, patient showing signs of improvement. He is passing flatus, had 4 BMs, and abdominal pain is resolved. Less concerned now that he will require any surgery during this admission. Plan: 1. Advance to soft diet. Would eventually transition to low residue diet at home for a 1-2 weeks to minimize irritation to colon. Will drop off info for patient. 2. IVF - august d/c from my perspective. 3. IV abx 4. ID consulted 5. prn pain control 6. DVT ppx 7. bl cx - gram neg rods 8. From my perspective, ok to d/c home when medically cleared. Should eventually f/u with GI doc. Home Abx plan per ID. Plan discussed with patient. Will follow along. Please call with questions. time=10min Subjective Date of service: 09/11/19 Patient Reports: Positive: no new complaints, feels better, pain is less, tolerating a regular diet, flatus, bowel movement. Negative: nausea, vomiting Objective Vital Signs - 12hr 09/11/19 09/11/19 09/11/19 00:00 00:11 03:47 Temperature 98.2 F Pulse Rate 60 Respiratory 18 17 17 Rate Blood Pressure 125/85 O2 Sat by Pulse 97 Oximetry 09/11/19 04:24 Temperature 98.2 F Pulse Rate 74 Respiratory 18 Rate Blood Pressure 126/78 O2 Sat by Pulse 96 Oximetry - General physical appearance no distress, no pain, obese - Eyes normal occular movement - Respiratory normal expansion, normal respiratory effort - Abdomen soft, not tender, not distended, not guarding, not rigid - Psychiatric oriented to time, oriented to person, oriented to place, speech is normal, memory intact - Labs 09/10/19 07:02 09/10/19 07:02
[2019-09-11] MEDS: FLUCONAZOLE 400 MG 200 ML IV SCH (10:52)
[2019-09-11] MEDS: METOPROLOL TARTRATE 25 MG TAB PO SCH ×2 (10:54→23:16)
[2019-09-11] MEDS: GABAPENTIN 300 MG CAP PO SCH ×3 (10:55→23:03)
[2019-09-11] MEDS: hydroCHLOROthiazide 12.5 MG CAP PO SCH (10:55)
[2019-09-11] MEDS: LOSARTAN 50 MG TAB PO SCH (10:55)
[2019-09-11] MEDS: PANTOPRAZOLE 40 MG TAB PO SCH (10:55)
[2019-09-11] MEDS: predniSONE 20 MG TAB PO SCH (10:55)
[2019-09-11] MEDS: carBAMazepine 200 MG TAB PO SCH ×2 (10:56→23:08)
[2019-09-11] MEDS: TAMSULOSIN 0.4 MG CAP PO SCH (10:56)
[2019-09-11] MEDS: SODIUM CHLORIDE 0.9% 1000 ML 1,000 ML IV SCH (10:56)
[2019-09-11] MEDS: amLODIPine 5 MG TAB PO SCH (10:56)
[2019-09-11] MEDS: ACETAMINOPHEN 325 MG TAB PO PRN (11:05)
--- NOTE | 2019-09-11 11:52 | Progress Note ---
Assessment and Plan Assessment and plan: 53 YO Male with HTN, Myasthenia Gravis, Ulcerative Colitis presents to ED for evaluation. Patient states that he has been experiencing abdominal pain over the past 2 weeks with worsening symptoms over the past 4 days. Patient also reports fever to 102 F. Patient's reports that patient did not receive his Solaris infusion due to feeling ill. Patient states his abdominal pain is 7/10, constant, crampy in nature, not worsened with exertion, not relieved with rest. EMS notified and upon arrival the patient was found to be in distress and subsequently transported to [facility] for further care and evaluation. Patient seen and evaluated in the emergency department. Lab and imaging studies reviewed. Patient underwent a CT scan of the abdomen and pelvis which showed evidence of diverticulitis. Patient admitted to surgical floor due to increased risk of decompensation. Patient treated with IV fluid resuscitation therapy, bowel rest, and IV antibiotic therapy. Surgical team consulted in ED. Patient denies chills, chest pain, palpitation, productive cough, recent ill contacts, ingestion of food/water from new or different sources, known exposure to COVID- 19. No prior admission for review. All medication listed at time of admission has been reconciled. CT A/P IMPRESSION: 1. Abnormality of the proximal sigmoid colon could represent localized colitis/diverticulitis. The findings could all be so be produced by carcinoma the colon. CT Chest: IMPRESSION: Unremarkable CT chest without contrast. CXR: IMPRESSION: 1. No acute findings. Severe Sepsis Gram Negative Bactermia Acute diverticulitis Ulcerative colitis Hyponatremia syndrome Acute Metabolic Encephalopathy Hypokalemia Myasthenia Gravis Thrombocytopnia Plan 09/08: Bcx: GNR- Continue antbiotics per ID. Check AM labs. 09/09: Patient is tolerating clear liquid diet. No further fever noted today. Reports that he is ambulating well. We will continue to monitor and await further recommendation by surgery and ID. Plan discussed with the nursing staff and patient 09/10: Patient clinically stable considers to tolerate diet as noted above continues to ambulate. ID managing antibiotics. Discharge when okay with surgery I presume when the patient is able to advance diet. Continue supportive care Pain control Replace Electrolytes ID consulted and I spoke to them Continue ABX PER ID. Follow Cultures Continue fluids Ok with steroids at 60 mg which is what he takes outpatient. Will also give some magnesium DVT/GI PROPHY Plan of care discussed with team History Interval history: Patient seen and examined no new complaints reports improving pain although chronic back pain still persist.. Tolerating clear liquids no other adverse event reported by nursing staff Hospitalist Physical - Physical exam Narrative exam: VITAL SIGNS: Reviewed. GENERAL: The patient appears normally developed, no acute distress vital signs as documented. HEAD: No signs of head trauma. EYES: Pupils are equal. Extraocular motions intact. EARS: Hearing grossly intact. MOUTH: Oropharynx is normal. NECK: No adenopathy, no JVD. CHEST: Chest with clear breath sounds bilaterally. No wheezes, rales, or rhonchi. CARDIAC: Regular rate and rhythm. S1 and S2, without murmurs, gallops, or rubs. VASCULAR: No Edema. Peripheral pulses normal and equal in all extremities. ABDOMEN: Soft, distended but improved, tender left lower quadrant. No rebound or guarding, and no masses palpated. Bowel Sounds normal. MUSCULOSKELETAL: Good range of motion of all major joints. Extremities without clubbing, cyanosis or edema. NEUROLOGIC EXAM: Alert and oriented x 3 No focal sensory or strength deficits. Speech normal. Follows commands. PSYCHIATRIC: Mood normal. SKIN: detail exam as documented in skin assessment - Constitutional Vitals: Temp Pulse Resp BP Pulse Ox 98.2 F 74 18 126/78 96 09/11/19 04:24 09/11/19 04:24 09/11/19 04:24 09/11/19 04:24 09/11/19 04:24 General appearance: Present: mild distress, obese Results - Labs CBC & Chem 7: 09/10/19 07:02 09/10/19 07:02 Labs: Laboratory Last Values WBC 12.7 K/mm3 (4.5-11.0) H 09/10/19 07:02 RBC 3.67 M/mm3 (3.65-5.03) 09/10/19 07:02 Hgb 10.3 gm/dl (11.8-15.2) L 09/10/19 07:02 Hct 31.3 % (35.5-45.6) L 09/10/19 07:02 MCV 85 fl (84-94) 09/10/19 07:02 MCH 28 pg (28-32) 09/10/19 07:02 MCHC 33 % (32-34) 09/10/19 07:02 RDW 17.3 % (13.2-15.2) H 09/10/19 07:02 Plt Count 142 K/mm3 (140-440) 09/10/19 07:02 Lymph % (Auto) 3.2 % (13.4-35.0) L 09/08/19 05:12 Guthrie % (Auto) 6.6 % (0.0-7.3) 09/08/19 05:12 Eos % (Auto) 0.0 % (0.0-4.3) 09/08/19 05:12 Baso % (Auto) 0.2 % (0.0-1.8) 09/08/19 05:12 Lymph # 0.4 K/mm3 (1.2-5.4) L 09/08/19 05:12 Guthrie # 0.9 K/mm3 (0.0-0.8) H 09/08/19 05:12 Eos # 0.0 K/mm3 (0.0-0.4) 09/08/19 05:12 Baso # 0.0 K/mm3 (0.0-0.1) 09/08/19 05:12 Add Manual Diff Complete 09/07/19 09:10 Total Counted 100 09/07/19 09:10 Seg Neutrophils % 90.0 % (40.0-70.0) H 09/08/19 05:12 Seg Neuts % (Manual) 92.0 % (40.0-70.0) H 09/07/19 09:10 Band Neutrophils % 4.0 % 09/07/19 09:10 Lymphocytes % (Manual) 2.0 % (13.4-35.0) L 09/07/19 09:10 Reactive Lymphs % (Man) 0 % 09/07/19 09:10 Monocytes % (Manual) 2.0 % (0.0-7.3) 09/07/19 09:10 Eosinophils % (Manual) 0 % (0.0-4.3) 09/07/19 09:10 Basophils % (Manual) 0 % (0.0-1.8) 09/07/19 09:10 Metamyelocytes % 0 % 09/07/19 09:10 Myelocytes % 0 % 09/07/19 09:10 Promyelocytes % 0 % 09/07/19 09:10 Blast Cells % 0 % 09/07/19 09:10 Nucleated RBC % Not Reportable 09/07/19 09:10 Seg Neutrophils # 12.3 K/mm3 (1.8-7.7) H 09/08/19 05:12 Seg Neutrophils # Man 10.1 K/mm3 (1.8-7.7) H 09/07/19 09:10 Band Neutrophils # 0.4 K/mm3 09/07/19 09:10 Lymphocytes # (Manual) 0.2 K/mm3 (1.2-5.4) L 09/07/19 09:10 Abs React Lymphs (Man) 0.0 K/mm3 09/07/19 09:10 Monocytes # (Manual) 0.2 K/mm3 (0.0-0.8) 09/07/19 09:10 Eosinophils # (Manual) 0.0 K/mm3 (0.0-0.4) 09/07/19 09:10 Basophils # (Manual) 0.0 K/mm3 (0.0-0.1) 09/07/19 09:10 Metamyelocytes # 0.0 K/mm3 09/07/19 09:10 Myelocytes # 0.0 K/mm3 09/07/19 09:10 Promyelocytes # 0.0 K/mm3 09/07/19 09:10 Blast Cells # 0.0 K/mm3 09/07/19 09:10 WBC Morphology Not Reportable 09/07/19 09:10 Hypersegmented Neuts Not Reportable 09/07/19 09:10 Hyposegmented Neuts Not Reportable 09/07/19 09:10 Hypogranular Neuts Not Reportable 09/07/19 09:10 Smudge Cells Not Reportable 09/07/19 09:10 Toxic Granulation Not Reportable 09/07/19 09:10 Toxic Vacuolation Not Reportable 09/07/19 09:10 Dohle Bodies Not Reportable 09/07/19 09:10 Pelger-Huet Anomaly Not Reportable 09/07/19 09:10 Kayleigh Rods Not Reportable 09/07/19 09:10 Platelet Estimate Consistent w auto 09/07/19 09:10 Clumped Platelets Not Reportable 09/07/19 09:10 Plt Clumps, EDTA Not Reportable 09/07/19 09:10 Large Platelets Not Reportable 09/07/19 09:10 Giant Platelets Not Reportable 09/07/19 09:10 Platelet Satelliting Not Reportable 09/07/19 09:10 Plt Morphology Comment Not Reportable 09/07/19 09:10 RBC Morphology Not Reportable 09/07/19 09:10 Dimorphic RBCs Not Reportable 09/07/19 09:10 Polychromasia Not Reportable 09/07/19 09:10 Hypochromasia Not Reportable 09/07/19 09:10 Poikilocytosis Not Reportable 09/07/19 09:10 Anisocytosis Rare 09/07/19 09:10 Microcytosis Not Reportable 09/07/19 09:10 Macrocytosis Not Reportable 09/07/19 09:10 Spherocytes Not Reportable 09/07/19 09:10 Pappenheimer Bodies Not Reportable 09/07/19 09:10 Sickle Cells Not Reportable 09/07/19 09:10 Target Cells Not Reportable 09/07/19 09:10 Tear Drop Cells Not Reportable 09/07/19 09:10 Ovalocytes Not Reportable 09/07/19 09:10 Helmet Cells Not Reportable 09/07/19 09:10 Cifuentes-Sturtevant Bodies Not Reportable 09/07/19 09:10 [place] Rings Not Reportable 09/07/19 09:10 Roscoe Cells Not Reportable 09/07/19 09:10 Bite Cells Not Reportable 09/07/19 09:10 Crenated Cell Not Reportable 09/07/19 09:10 Elliptocytes Not Reportable 09/07/19 09:10 Acanthocytes (Spur) Not Reportable 09/07/19 09:10 Rouleaux Not Reportable 09/07/19 09:10 Hemoglobin C Crystals Not Reportable 09/07/19 09:10 Schistocytes Not Reportable 09/07/19 09:10 Malaria parasites Not Reportable 09/07/19 09:10 Real Bodies Not Reportable 09/07/19 09:10 Hem Pathologist Commnt No 09/07/19 09:10 Sodium 140 mmol/L (137-145) 09/10/19 07:02 Potassium 3.7 mmol/L (3.6-5.0) 09/10/19 07:02 Chloride 105.8 mmol/L (98-107) 09/10/19 07:02 Carbon Dioxide 23 mmol/L (22-30) 09/10/19 07:02 Anion Gap 15 mmol/L 09/10/19 07:02 BUN 21 mg/dL (9-20) H 09/10/19 07:02 Creatinine 0.9 mg/dL (0.8-1.5) 09/10/19 07:02 Estimated GFR > 60 ml/min 09/10/19 07:02 BUN/Creatinine Ratio 23 % 09/10/19 07:02 Glucose 98 mg/dL (75-100) 09/10/19 07:02 POC Glucose 133 (70-105) H 09/07/19 09:06 Lactic Acid 0.80 mmol/L (0.7-2.0) 09/07/19 12:24 Calcium 7.7 mg/dL (8.4-10.2) L 09/10/19 07:02 Magnesium 2.40 mg/dL (1.7-2.3) H 09/08/19 15:16 Total Bilirubin 0.30 mg/dL (0.1-1.2) 09/08/19 05:12 AST 19 units/L (5-40) 09/08/19 05:12 ALT 12 units/L (7-56) 09/08/19 05:12 Alkaline Phosphatase 37 units/L (35-129) 09/08/19 05:12 C-Reactive Protein 28.60 mg/dL (0.00-1.30) H 09/08/19 15:16 Total Protein 5.4 g/dL (6.3-8.2) L 09/08/19 05:12 Albumin 2.7 g/dL (3.9-5) L 09/08/19 05:12 Albumin/Globulin Ratio 1.0 % 09/08/19 05:12 Urine Color Kelsy (Yellow) 09/07/19 10:00 Urine Turbidity Slightly-cloudy (Clear) 09/07/19 10:00 Urine pH 6.0 (5.0-7.0) 09/07/19 10:00 Ur Specific [place] 1.024 (1.003-1.030) 09/07/19 10:00 Urine Protein 100 mg/dl mg/dL (Negative) 09/07/19 10:00 Urine Glucose (UA) Neg mg/dL (Negative) 09/07/19 10:00 Urine Ketones 80 mg/dL (Negative) 09/07/19 10:00 Urine Blood Lg (Negative) 09/07/19 10:00 Urine Nitrite Neg (Negative) 09/07/19 10:00 Urine Bilirubin Neg (Negative) 09/07/19 10:00 Urine Urobilinogen < 2.0 mg/dL (<2.0) 09/07/19 10:00 Ur Leukocyte Esterase Neg (Negative) 09/07/19 10:00 Urine WBC (Auto) 6.0 /HPF (0.0-6.0) 09/07/19 10:00 Urine RBC (Auto) 68.0 /HPF (0.0-6.0) 09/07/19 10:00 U Epithel Cells (Auto) 1.0 /HPF (0-13.0) 09/07/19 10:00 Urine Bacteria (Auto) 1+ /HPF (Negative) 09/07/19 10:00 Urine Mucus 1+ /HPF 09/07/19 10:00 Microbiology: Microbiology 09/07/19 09:10 Peripheral/Venous Blood Culture - Preliminary Escherichia Coli 09/07/19 09:10 Peripheral/Venous Blood Culture - Preliminary Escherichia Coli 09/07/19 10:00 Urine,Clean Catch Urine Culture - Final Abreu/IV: Voiding Method Urinal IV Catheter Type [Right Upper INT / Saline Lock arm] IV Catheter Type [Left Upper Peripheral IV arm] IV Catheter Type [Right Peripheral IV Antecubital] Active Medications - Current Medications Current Medications: Generic Name Dose Route Start Last Admin Trade Name Freq PRN Reason Stop Dose Admin Acetaminophen 650 mg 09/07/19 14:08 09/11/19 11:05 Tylenol PO 650 mg Q4H PRN Administration Pain MILD(1-3)/Fever >100.5/BALDERAS Amlodipine Besylate 5 mg 09/08/19 10:00 09/11/19 10:56 Amlodipine PO 5 mg QDAY LUCIO Administration Carbamazepine 200 mg 09/07/19 22:00 09/11/19 10:56 Tegretol PO 200 mg BID LUCIO Administration Gabapentin 900 mg 09/07/19 20:00 09/11/19 10:55 Gabapentin PO 900 mg TID LUCIO Administration Hydrochlorothiazide 12.5 mg 09/08/19 10:00 09/11/19 10:55 Hctz PO 12.5 mg QDAY LUCIO Administration Hydromorphone HCl 0.5 mg 09/08/19 14:04 09/11/19 10:56 Dilaudid IV 0.5 mg Q3H PRN Administration Pain , Severe (7-10) Piperacillin Sod/Tazobactam Sod 4.5 gm in 100 mls @ 200 mls/hr 09/07/19 22:00 09/11/19 06:23 Zosyn/Ns 4.5gm/100ml IV 200 mls/hr Q8HR LUCIO Administration Protocol Sodium Chloride 1,000 mls @ 125 mls/hr 09/07/19 14:15 09/11/19 10:56 Nacl 0.9% 1000 Ml IV 125 mls/hr DIRECT LUCIO Administration Fluconazole 200 mls @ 100 mls/hr 09/08/19 16:00 09/11/19 10:52 Diflucan IV 100 mls/hr Q24HR LUCIO Administration Protocol Losartan Potassium 50 mg 09/08/19 10:00 09/11/19 10:55 Cozaar PO 50 mg QDAY LUCIO Administration Metoprolol Tartrate 25 mg 09/07/19 22:00 09/11/19 10:54 Metoprolol PO 25 mg BID LUCIO Administration Miscellaneous Medication 2,250 mg 09/07/19 20:00 Balsalazide Disodium [Colazal] PO TID LUCIO Morphine Sulfate 2 mg 09/08/19 14:05 09/10/19 16:36 Morphine IV 2 mg Q3H PRN Administration Pain, Moderate (4-6) Ondansetron HCl 4 mg 09/07/19 14:08 Zofran IV Q8H PRN Nausea And Vomiting Pantoprazole Sodium 40 mg 09/08/19 10:00 09/11/19 10:55 Protonix PO 40 mg DAILY LUCIO Administration Prednisone 60 mg 09/07/19 12:00 09/11/19 10:55 Deltasone PO 60 mg DAILY LUCIO Administration Pyridostigmine [place] 120 mg 09/07/19 12:00 09/11/19 09:00 Mestinon PO 120 mg Q6HR LUCIO Administration Sodium Chloride 10 ml 09/07/19 22:00 09/11/19 10:56 Sodium Chloride Flush Syringe 10 Ml IV 10 ml BID LUCIO Administration Sodium Chloride 10 ml 09/07/19 14:08 Sodium Chloride Flush Syringe 10 Ml IV PRN PRN LINE FLUSH Tamsulosin HCl 0.4 mg 09/08/19 10:00 09/11/19 10:56 Flomax PO 0.4 mg QDAY LUCIO Administration
--- NOTE | 2019-09-11 15:07 | Progress Note ---
Assessment and Plan Cultures: 09/07/2027 blood culture: E. coli Assessment: 53 years old male with history of ulcerative colitis, myasthenia gravis, admitted on 09/07/2019 due to a week history of left lower quadrant pain, associated with generalized malaise, nausea and altered mental status: #Severe sepsis: source sigmoid colitis (ulcerative colitis flare) versus diverticulitis causing E.coli bacteremia. Urinalysis negative. #E.coli bacteremia: Likely from sigmoid infection. Noncontrasted CT showed no collection. #Sigmoid colitis: Possible ulcerative colitis flare versus diverticulitis, noncontrasted CT shows no collection. Recommendations: abx streamlined to IV Ceftriaxone 2 gm daily + Flagyl 500 mg TID upon discharge, switch to PO Levofloxacin 750 mg daily + Flagyl 500 mg TID ending 09/21/2019 (to complete 14 days of therapy) Geremias Mayes MD, FACP [facility] ([facility]) C: [phone] O: [phone] F: [phone] Subjective Date of service: 09/11/19 Interval history: Patient reports feeling 80% better since Wednesday. Denies any fever. Was started on a diet today but could not take in much of it. Passing gas. BM +. Objective - Exam Narrative Exam: Physical Exam: Constitutional: Alert, cooperative. No acute distress Head, Ears, Nose: Normocephalic, atraumatic. External ears, nose normal Eyes: Conjunctivae/corneas clear. No icterus. No ptosis. Neck: Supple, no meningeal signs Cardiovascular: S1, S2 normal. Respiratory: Good air entry, clear to auscultation bilaterally GI: Soft, mildly tender in LLQ; bowel sounds normal. No peritoneal signs Musculoskeletal: No pedal edema, no cyanosis. Skin: No rash or abscess Hem/Lymphatic: No palpable cervical or supraclavicular nodes. No lymphangitis Psych: Mood ok. Affect normal Neurological: Awake, alert, oriented. No gross abnormality - Constitutional Vitals: Vital Signs Temp Pulse Resp BP Pulse Ox 99.2 F 88 20 144/84 96 09/11/19 11:27 09/11/19 11:27 09/11/19 11:27 09/11/19 11:27 09/11/19 11:27 Temperature -Last 24 Hours Temperature 99.2 F Temperature 98.2 F Temperature 98.2 F Temperature 98.2 F Temperature 98.1 F - Labs CBC & Chem 7: 09/10/19 07:02 09/10/19 07:02
[2019-09-11] MEDS: cefTRIAXone/NS 2 GM/100 ML 2 GM/100 ML BAG IV SCH (20:00)
[2019-09-11] MEDS: metroNIDAZOLE/NS 500 MG/100 ML 500 MG/100 ML BAG IV SCH ×2 (20:33→23:30)
[2019-09-12] MEDS: HYDROmorphone 1 MG/1 ML INJ IV PRN ×4 (03:08→15:07)
[2019-09-12] MEDS: SODIUM CHLORIDE 0.9% 1000 ML 1,000 ML IV SCH (03:16)
[2019-09-12] MEDS: metroNIDAZOLE/NS 500 MG/100 ML 500 MG/100 ML BAG IV SCH ×2 (05:30→13:45)
[2019-09-12] MEDS: PYRIDOSTIGMINE BROMIDE 60 MG TAB PO SCH ×2 (05:30→12:03)
[2019-09-12] MEDS: carBAMazepine 200 MG TAB PO SCH (08:59)
[2019-09-12] MEDS: LOSARTAN 50 MG TAB PO SCH (08:59)
[2019-09-12] MEDS: amLODIPine 5 MG TAB PO SCH (08:59)
[2019-09-12] MEDS: cefTRIAXone/NS 2 GM/100 ML 2 GM/100 ML BAG IV SCH (08:59)
[2019-09-12] MEDS: TAMSULOSIN 0.4 MG CAP PO SCH (09:00)
[2019-09-12] MEDS: hydroCHLOROthiazide 12.5 MG CAP PO SCH (09:00)
[2019-09-12] MEDS: GABAPENTIN 300 MG CAP PO SCH ×2 (09:00→13:45)
[2019-09-12] MEDS: PANTOPRAZOLE 40 MG TAB PO SCH (09:00)
[2019-09-12] MEDS: predniSONE 20 MG TAB PO SCH (09:00)
[2019-09-12] MEDS: METOPROLOL TARTRATE 25 MG TAB PO SCH (09:00)
--- NOTE | 2019-09-12 13:33 | Discharge Summary ---
Providers - Providers Date of Admission: 09/07/19 14:08 Date of discharge: 09/12/19 Attending physician: FLORECITA SIDHU 09/07/19 16:44 Consult to Physician [CONS] Routine Comment: Consulting Provider: JENNY RUBIO Physician Instructions: Reason For Exam: diverticulitis 09/08/19 09:16 Consult to Physician [CONS] Routine Comment: Consulting Provider: ANDREI TINSLEY Physician Instructions: Reason For Exam: sepsis [facility] Reason for admission: Acute colitis/ulcerative colitis flareup/nausea vomiting abdominal pain Condition: Fair Pertinent studies: CT abdomen and pelvis: Abnormality of the proximal sigmoid colon could represent localized colitis/diverticulitis. The findings could all be so be produced by carcinoma the colon. CT Chest: Unremarkable CT chest without contrast. CXR: No acute findings. Hospital course: 53-year-old male patient with significant history of ulcerative colitis myasthenia gravis was admitted with 1 week history of left lower quadrant pain associated with nausea malaise and altered level of consciousness Initial work-up is consistent with severe sepsis secondary to sigmoid colitis versus diverticulitis causing E. coli bacteremia Patient's urine analysis is negative Patient was evaluated by ID medications optimized, recommended 14 days of antibiotics patient was also evaluated by general surgeon, no surgical indication, medical management antibiotics per ID. Patient symptoms slowly but gradually improved Able to tolerate mechanical soft diet, advised low residual mechanical soft diet and follow-up with GI and surgery per schedule upon discharge Cleared by consultants, stable at discharge Discharge diagnosis; --Severe sepsis; secondary to ulcerative colitis flareup --Gram-negative bacteremia/gram-negative sepsis[colon: Infection] --Hyponatremia; resolved --Hypokalemia; corrected --Severe malnutrition; nutrition supplements --Leukocytosis; secondary to sepsis Disposition: - TO HOME OR SELFCARE Time spent for discharge: 32 min Core Measure Documentation - Palliative Care Palliative Care/ Comfort Measures: Not Applicable - Core Measures Any of the following diagnoses?: none Exam - Constitutional Vitals: Temp Pulse Resp BP Pulse Ox 98.0 F 75 19 140/73 96 09/12/19 11:00 09/12/19 11:00 09/12/19 11:00 09/12/19 11:00 09/12/19 11:00 General appearance: Present: no acute distress, well-nourished - EENT Eyes: Present: PERRL, EOM intact - Neck Neck: Present: supple, normal ROM - Respiratory Respiratory effort: normal Respiratory: bilateral: diminished, rhonchi, negative: rales, wheezing - Cardiovascular Rhythm: regular Heart Sounds: Present: S1 & S2 - Extremities Extremities: no ischemia, No edema - Abdominal General gastrointestinal: Present: soft, non-tender, non-distended, normal bowel sounds - Integumentary Integumentary: Present: clear, warm - Musculoskeletal Musculoskeletal: strength equal bilaterally - Psychiatric Psychiatric: appropriate mood/affect - Neurologic Neurologic: moves all extremities Plan Activity: no restrictions Diet: other (Mechanical soft diet) Additional Instructions: low residue diet at home for a 1-2 weeks to minimize irritation to colon Follow up with: MICAELA VALENCIA MD [Primary Care Provider] - 3-5 Days RAMONITA HONEYCUTT MD [Staff Physician] - 14 Days LAMAR CARRANZA MD [Staff Physician] - 14 Days Prescriptions: metroNIDAZOLE [Flagyl TAB] 500 mg PO Q8HR #30 tablet levoFLOXacin [Levaquin] 750 mg PO QDAY #10 tablet
--- NOTE | 2019-09-12 14:01 | Progress Note ---
Assessment and Plan - Patient Problems (1) Acute diverticulitis Current Visit: Yes Status: Acute Plan to address problem: 1. acute uncomplicated sigmoid diverticulitis 2. History of ulcerative colitis 3. sepsis 2/2 #1 Based on history, patient showing signs of improvement. Plan: 1. low residue diet at home for a 1-2 weeks to minimize irritation to colon. Dropped off info yesterday 2. IVF - Abx per ID 3. From my perspective, ok to d/c home when medically cleared. Should eventually f/u with GI doc. Home Abx plan per ID. Please call with questions. time=10min Subjective Date of service: 09/12/19 Patient Reports: Positive: no new complaints, feels better, tolerating a regular diet Objective Vital Signs - 12hr 09/12/19 09/12/19 09/12/19 04:49 07:11 08:59 Temperature 97.7 F 98.1 F Pulse Rate 57 L 64 64 Respiratory 17 19 Rate Blood Pressure 132/75 148/79 148/79 Blood Pressure [Left] O2 Sat by Pulse 96 94 Oximetry 09/12/19 11:00 Temperature 98.0 F Pulse Rate 75 Respiratory 19 Rate Blood Pressure Blood Pressure 140/73 [Left] O2 Sat by Pulse 96 Oximetry - General physical appearance no distress, no pain, obese - Respiratory normal expansion, normal respiratory effort - Psychiatric oriented to time, oriented to person, oriented to place, speech is normal, memory intact - Labs 09/10/19 07:02 09/10/19 07:02
--- NOTE | 2019-09-12 15:06 | Progress Note ---
Assessment and Plan Cultures: 09/07/2027 blood culture: E. coli Assessment: 53 years old male with history of ulcerative colitis, myasthenia gravis, admitted on 09/07/2019 due to a week history of left lower quadrant pain, associated with generalized malaise, nausea and altered mental status: #Severe sepsis: source sigmoid colitis (ulcerative colitis flare) versus diverticulitis causing E.coli bacteremia. Urinalysis negative. Resolved. #E.coli bacteremia: Likely from sigmoid infection. Noncontrasted CT showed no collection. Symptoms improving. #Sigmoid colitis: Possible ulcerative colitis flare versus diverticulitis, noncontrasted CT showed no collection. Recommendations: upon discharge, switch to PO Levofloxacin 750 mg daily + Flagyl 500 mg TID ending 09/21/2019 (to complete 14 days of therapy) ID clinic follow up PRN. Explained risk of relapse with abx alone and need for outpatient follow up with GI. Geremias Mayes MD, FACP [facility] ([facility]) C: [phone] O: [phone] F: [phone] Subjective Date of service: 09/12/19 Interval history: Doing well, afebrile, no complaints. Hoping for discharge. Eating better. Objective - Exam Narrative Exam: Physical Exam: Constitutional: Alert, cooperative. No acute distress Head, Ears, Nose: Normocephalic, atraumatic. External ears, nose normal Eyes: Conjunctivae/corneas clear. No icterus. No ptosis. Neck: Supple, no meningeal signs Cardiovascular: S1, S2 normal. Respiratory: Good air entry, clear to auscultation bilaterally GI: Soft, minimal tenderness in LLQ; bowel sounds normal. No peritoneal signs Musculoskeletal: No pedal edema, no cyanosis. Skin: No rash or abscess Hem/Lymphatic: No palpable cervical or supraclavicular nodes. No lymphangitis Psych: Mood ok. Affect normal Neurological: Awake, alert, oriented. No gross abnormality - Constitutional Vitals: Vital Signs Temp Pulse Resp BP Pulse Ox 98.0 F 75 19 140/73 96 09/12/19 11:00 09/12/19 11:00 09/12/19 11:00 09/12/19 11:09/12/19 11:00 Temperature -Last 24 Hours Temperature 98.0 F Temperature 98.1 F Temperature 97.7 F Temperature 98.7 F Temperature 97.7 F Temperature 98.0 F - Labs CBC & Chem 7: 09/10/19 07:02 09/10/19 07:02
[2019-09-12 15:57] VITALS: BP 136/71
== END 2019-09-12 16:40 | disposition home or self-care (01) | DRG 871 ==
LOC: ED 08:57 → 3A 14:08 → 3B-SURG 16:03
PROVIDERS: ADMIT Internal Medicine; ATTEND Internal Medicine
DX: A41.51 Sepsis due to Escherichia coli [E. coli] (principal); G93.41 Metabolic encephalopathy; K57.32 Diverticulitis of large intestine without perforation or abscess without bleeding; K51.90 Ulcerative colitis, unspecified, without complications; E87.1 Hypo-osmolality and hyponatremia; R65.20 Severe sepsis without septic shock; E87.6 Hypokalemia; G70.00 Myasthenia gravis without (acute) exacerbation; D69.6 Thrombocytopenia, unspecified; I10 Essential (primary) hypertension; Z79.899 Other long term (current) drug therapy; Z90.49 Acquired absence of other specified parts of digestive tract; Z82.49 Family history of ischemic heart disease and other diseases of the circulatory system
CPT/HCPCS: 36415; 71045; 71250; 74176; 80048; 80053; 81001; 82140; 82962; 83735; 85007; 85025; 85027; 86140; 87040; 87076; 87086; 87186; 93005; G0378; J0696; J1170; J1450; J2060; J2270; J2543; J3475; J3480; J7030; J7120; J7512